=== PATIENT | male | born 1950 | race Caucasian/White ===

== ENCOUNTER 2020-01-03 12:04 | Outpatient (CLI) | payer MEDICARE, MEDICAID, SELFPAY ==
--- NOTE | 2020-01-03 12:16 | XRR_ITS ---
PROCEDURE INFORMATION: Exam: XR Abdomen, 3 or More Views Exam date and time: 01/03/2020 1:03 PM Age: 69 years old Clinical indication: Other: Upper chest / rib pain; Prior surgery; Surgery date: 6+ months; Surgery type: Bypass; Patient HX: C/O upper chest/ rib pain bilateral; Additional info: Abdominal pain TECHNIQUE: Imaging protocol: XR of the abdomen. Views: 3 or more views. COMPARISON: No relevant prior studies available. FINDINGS: Gastrointestinal tract: Normal. No bowel dilation. Intraperitoneal space: Normal. No free air. Bones/joints: There has been a sternotomy.There is no evidence for acute fracture or malalignment. Degenerative change is identified in the spine. The lungs are clear. No pleural effusion or pneumothorax. XR/XR acute abdomen series [id number] IMPRESSION: No acute findings.
== END 2020-01-03 12:05 | disposition home or self-care (01) ==
LOC: RAD 12:12
PROVIDERS: PCP Electrodiagnostic Medicine; Visit Provider Electrodiagnostic Medicine
DX: R10.9 Unspecified abdominal pain (principal)
CPT/HCPCS: 74022

== ENCOUNTER 2020-03-31 08:47 | Outpatient (CLI) | payer MEDICARE, MEDICAID, SELFPAY ==
--- NOTE | 2020-03-31 08:57 | XR_ITS ---
WS: [id number] Exam: XR shoulder LT min 2V* [id number] Date/Time of Exam: 03/31/2020 9:06 AM Reason For Exam: BILATERAL SHOULDER PAIN No fracture or dislocation. Minimal degenerative change of the glenoid. Subacromial bone spurring. No rmal soft tissues. XR/XR shoulder LT min 2V* [id number] IMPRESSION: 1. Mild degenerative changes. No fracture or dislocation.
--- NOTE | 2020-03-31 08:57 | XR_ITS ---
WS: [id number] Exam: XR chest 2V* [id number] Date/Time of Exam: 03/31/2020 9:06 AM Reason For Exam: DYSPNEA ON EXERTION Comparison 03/29/2018. The lungs are clear and fully expanded. Normal cardiomediastinal structures and bony elements. Status post CABG surgery. No pleural effusion. XR/XR chest 2V* [id number] IMPRESSION: 1. No acute cardiopulmonary finding. No change.
--- NOTE | 2020-03-31 08:57 | XR_ITS ---
WS: [id number] Exam: XR hip RT 2-3V wo/w pel* [id number] Date/Time of Exam: 03/31/2020 9:06 AM Reason For Exam: R HIP PAIN No fracture or dislocation. Moderately advanced degenerative change with joint space narrowing. Subco rtical cyst formation in the femoral head. Prominent osteophyte along the lateral margin of the aceta bular rim. Surgical clips in the upper medial thigh. XR/XR hip RT 2-3V wo/w pel* [id number] IMPRESSION: 1. Moderately advanced DJD. No fracture or dislocation.
--- NOTE | 2020-03-31 08:57 | XR_ITS ---
WS: [id number] Exam: XR shoulder RT min 2V* [id number] Date/Time of Exam: 03/31/2020 9:06 AM Reason For Exam: BILATERAL SHOULDER PAIN No fracture or dislocation. Moderate degenerative changes at the AC joint and glenohumeral joint. Nor mal soft tissues. XR/XR shoulder RT min 2V* [id number] IMPRESSION: 1. No fracture or dislocation. 2. Degenerative changes.
--- NOTE | 2020-03-31 08:57 | XR_ITS ---
WS: [id number] Exam: XR lumbar spine 2-3V* [id number] Date/Time of Exam: 03/31/2020 9:06 AM Reason For Exam: LOWER BACK PAIN Findings: No fracture or dislocation noted. There is spondylosis. Facet DJD at all levels. Degenerative disc ch anges at all levels. There is DJD of the bilateral SI joints. There may be partial fusion of the SI j oints. XR/XR lumbar spine 2-3V* [id number] IMPRESSION: 1. Moderately advanced degenerative changes. No fracture or malalignment.
== END 2020-03-31 08:48 | disposition home or self-care (01) ==
LOC: RAD 08:55
PROVIDERS: PCP Electrodiagnostic Medicine; Visit Provider Electrodiagnostic Medicine
DX: R06.00 Dyspnea, unspecified (principal); M54.5 Low back pain; M25.551 Pain in right hip; M25.512 Pain in left shoulder; M25.511 Pain in right shoulder; M16.11 Unilateral primary osteoarthritis, right hip
CPT/HCPCS: 71046; 72100; 73030; 73502

== ENCOUNTER 2020-05-14 13:36 | Outpatient (CLI) | payer MEDICARE, MEDICAID, SELFPAY ==
--- NOTE | 2020-05-14 13:48 | XRR_ITS ---
PROCEDURE INFORMATION: Exam: XR Chest, 2 Views Exam date and time: 05/14/2020 2:09 PM Age: 69 years old Clinical indication: Prior surgery; Surgery type: Bypass; Patient HX: HX of chf, swelling in feet, shortness of breath, weakness TECHNIQUE: Imaging protocol: XR of the chest Views: 2 views. COMPARISON: CR XR chest 2V* [id number] 03/31/2020 9:17 AM FINDINGS: Lungs: Unremarkable. No consolidation. Pleural space: Unremarkable. No pleural effusion. No pneumothorax. Heart/Mediastinum: Unremarkable. No cardiomegaly. Bones/joints: Metallic sternotomy wires are in place. Similar findings seen comparing to prior examination. XR/XR chest 2V* [id number] IMPRESSION: No acute findings. Status post sternotomy
== END 2020-05-14 13:37 | disposition home or self-care (01) ==
LOC: RAD 13:43
PROVIDERS: PCP Electrodiagnostic Medicine; Visit Provider Electrodiagnostic Medicine
DX: R06.09 Other forms of dyspnea (principal); I50.9 Heart failure, unspecified
CPT/HCPCS: 71046

== ENCOUNTER 2020-06-03 13:21 | Outpatient (CLI) | payer MEDICARE, MEDICAID, SELFPAY ==
--- NOTE | 2020-06-03 13:31 | USCV_ITS ---
Tiago Branch Age: 69 Gender: M : 1950 Exam Date: 06/03/2020 13:58 Ordering Phys: Dom Fuentes DO Technologist: Mariah Westfall [place]am Location: [facility] [place] [facility] [place] Indication: SOB CHF BP: 140 / 70 HR: 98 Rhythm: Sinus Technical Quality: Very technically difficult study MEASUREMENTS (Male / Female) Normal Values 2D ECHO LV Diastolic Diameter PLAX 3.7 cm 4.2 - 5.9 / 3.9 - 5.3 cm LV Systolic Diameter PLAX 1.6 cm LV Chamber Size 3.6 cm IVS Diastolic Thickness 1.4 cm 0.6 - 1.0 / 0.6 - 0.9 cm IVS Systolic Thickness 1.4 cm LVPW Diastolic Thickness 1.3 cm 0.6 - 1.0 / 0.6 - 0.9 cm LVPW Systolic Thickness 1.8 cm RV Chamber Size 3.2 cm LVOT Diameter 2.0 cm LV Ejection Fraction 2D Teich 87.2 % LA Diameter 3.1 cm LA Width 3.2 cm LA Height 4.9 cm RA Width 3.9 cm RA Height 4.3 cm Aorta at Sinotubular Diameter 3.4 cm M-MODE LV Diastolic Diameter MM 5.2 cm 4.2 - 5.9 / 3.9 - 5.3 cm LV Systolic Diameter MM 2.9 cm LV Ejection Fraction MM Teich 75.0 % IVS Diastolic Thickness MM 1.1 cm 0.6 - 1.0 / 0.6 - 0.9 cm IVS Systolic Thickness MM 1.3 cm LVPW Diastolic Thickness MM 1.1 cm 0.6 - 1.0 / 0.6 - 0.9 cm LVPW Systolic Thickness MM 1.7 cm RV Diastolic Diameter MM 1.5 cm Aortic Annulus Diameter 3.5 cm LA Ao Ratio MM 1.3 MV E Point Septal Separation 0.7 cm DOPPLER AV Peak Velocity 136.0 cm/s LVOT Peak Velocity 87.0 cm/s AV Area Cont Eq vti 2.2 cm squared AV Area Cont Eq pk 2.1 cm squared MV Area PHT 5.8 cm squared Mitral E to A Ratio 0.8 MV E' Velocity 32.0 cm/s Mitral E to MV E' Ratio 7.0 Mitral E to LV E' Lateral Ratio 8.3 Mitral E to LV E' Septal Ratio 6.1 TR Peak Velocity 178.1 cm/s TR Peak Gradient 12.7 mmHg TR Mean Velocity 130.3 cm/s TR Mean Gradient 7.5 mmHg TR Velocity Time Integral 37.5 cm TV Peak E Velocity 70.0 cm/s PV Peak Velocity 72.0 cm/s RV Acceleration Time 0.1 s RV Ejection Time 0.2 s RV AcT/ET 0.4 FINDINGS Left Ventricle Normal left ventricular cavity size. Low normal left ventricular systolic function. Left ventricular ejection fraction is estimated at 50-55 %. Although no diagnostic regional wall motion abnormality could be identified, this possibility cannot be excluded based on this study. Grade I diastolic dysfunction (abnormal relaxation filling pattern), normal to mildly elevated filling pressures. Right Ventricle Right ventricle not well visualized. Probably normal right ventricular systolic function. Right Atrium Right atrium not well visualized. Left Atrium Mildly increased left atrial size. Mitral Valve Mildly thickened mitral valve. No mitral valve stenosis. No significant mitral valve regurgitation. Aortic Valve Aortic valve not well visualized. No aortic valve stenosis. No aortic valve regurgitation. Tricuspid Valve Structurally normal tricuspid valve. Trace to mild tricuspid valve regurgitation. Pulmonic Valve Pulmonic valve not well visualized. Pericardium No pericardial effusion. Aorta Normal size aortic root and proximal ascending aorta. CONCLUSIONS 1. This is a technically difficult study. 2. Normal left ventricular cavity size. Low normal left ventricular systolic function. Left ventricular ejection fraction is estimated at 50-55 %. Although no diagnostic regional wall motion abnormality could be identified, this possibility cannot be excluded based on this study. Grade I diastolic dysfunction (abnormal relaxation filling pattern), normal to mildly elevated filling pressures. 3. Probably normal right ventricular systolic function. 4. Mildly increased left atrial size. 5. No significant valvular abnormality. 6. When compared to previous echocardiogram dated 04/08/2015, there may not have been any significant change. Shea Nelson MD (Electronically Signed) Final Date: 07 June 2020 15:11 S
== END 2020-06-03 13:22 | disposition home or self-care (01) ==
LOC: US 13:23
PROVIDERS: PCP Electrodiagnostic Medicine; Visit Provider Electrodiagnostic Medicine
DX: R06.09 Other forms of dyspnea (principal); I50.9 Heart failure, unspecified; I51.7 Cardiomegaly
CPT/HCPCS: 93306

== ENCOUNTER → 2021-10-23 10:49 | Outpatient (BNVA) | payer MEDICARE, MEDICAID, SELFPAY | PROVIDERS: PCP Electrodiagnostic Medicine; Visit Provider Internal Medicine | DX: I25.10 Atherosclerotic heart disease of native coronary artery without angina pectoris (principal); I10 Essential (primary) hypertension; R06.02 Shortness of breath; Z95.1 Presence of aortocoronary bypass graft; E78.5 Hyperlipidemia, unspecified; Z98.61 Coronary angioplasty status; E11.9 Type 2 diabetes mellitus without complications; Z79.84 Long term (current) use of oral hypoglycemic drugs | CPT/HCPCS: 99214 ==

== ENCOUNTER → 2022-05-21 09:06 | Outpatient (BNVA) | payer MEDICARE, MEDICAID, SELFPAY | PROVIDERS: PCP Electrodiagnostic Medicine; Visit Provider Nurse Practitioner Family | DX: I25.10 Atherosclerotic heart disease of native coronary artery without angina pectoris (principal); I10 Essential (primary) hypertension; I42.9 Cardiomyopathy, unspecified; T14.8XXD Other injury of unspecified body region, subsequent encounter; Z95.1 Presence of aortocoronary bypass graft | CPT/HCPCS: 99214 ==

== ENCOUNTER 2022-05-27 08:19 | Outpatient (CLI) | payer MEDICARE, MEDICAID, SELFPAY ==
--- NOTE | 2022-05-27 08:45 | USCV_ITS ---
Tiago Branch Age: 71 Gender: M : 1950 Exam Date: 05/27/2022 08:43 Ordering Phys: Margo Cruz Technologist: VICTORIA Exam Location: 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
== END 2022-05-27 08:20 | disposition home or self-care (01) ==
LOC: RAD 08:22
PROVIDERS: PCP Electrodiagnostic Medicine; Visit Provider Nurse Practitioner Family
DX: I25.10 Atherosclerotic heart disease of native coronary artery without angina pectoris (principal); L97.819 Non-pressure chronic ulcer of other part of right lower leg with unspecified severity
CPT/HCPCS: 93926

== ENCOUNTER → 2022-10-13 08:40 | Outpatient (BNVA) | payer MEDICARE, MEDICAID, SELFPAY | PROVIDERS: PCP Electrodiagnostic Medicine; Visit Provider Specialist | DX: M17.12 Unilateral primary osteoarthritis, left knee (principal) | CPT/HCPCS: 73560; 73565; 99204 ==

== ENCOUNTER 2022-11-04 10:57 | Outpatient (CLI) | payer MEDICARE, MEDICAID, SELFPAY ==
[2022-11-04 11:47] LABS: Basophils # 0.1 10^3/uL (0.0-0.1); Basophils % 0.9 %; Eosinophils % 0.1 %; Hematocrit 36.9 % (42.0-52.0); Hemoglobin 12.5 g/dL (11.7-16.6); Lymphocytes % 28.9 %; Mean Corpuscular HGB Conc 33.9 g/dL (30.0-36.0); Mean Corpuscular Hemoglobin 30.3 pg (28.0-34.0); Mean Corpuscular Volume 89.6 fl (80-94); Mean Platelet Volume 9.4 fL (7.4-10.4); Monocytes # 0.5 10^3/uL (0.2-0.9); Neutrophils # 4.43 10^3/uL (1.8-7.7); Nucleated Red Blood Cells % 0 %; Platelet Count 189 10^3/cmm (130-400); Red Blood Count 4.12 10^6/uL (4.1-5.3)
[2022-11-04 12:05] LABS: Alanine Aminotransferase 21 U/L (0-41); Albumin Level 4.2 g/dL (3.5-5.2); Alkaline Phosphatase 77 U/L (40-130); Anion Gap 14.8 (5-19); Aspartate Amino Transferase 20 U/L (0-40); Blood Urea Nitrogen 25 mg/dL (8-23); Calcium 9.2 mg/dL (8.5-10.5); Carbon Dioxide 24 mmol/L (22-29); Chloride 104 mmol/L (98-107); Globulin 3.3 g/dL (1.3-4.6); Glucose 135 mg/dL (65-115); Osmolality Calculated 290 mOsm/kg (285-295); Potassium 5.8 mmol/L (3.5-5.1); Sodium 137 mmol/L (136-145); Total Bilirubin 0.4 mg/dL (0.15-1.2); Total Protein 7.5 g/dL (6.6-8.7)
[2022-11-04 12:27] LABS: Hepatitis C Virus Antibody Reactive (Nonreactive)
[2022-11-04 12:38] LABS: Hepatitis B Core AB, Total Non-Reactive (Nonreactive); Hepatitis B Surface AB 3.5 (11.5-1000)
[2022-11-06 13:25] LABS: Quantiferon Mitogen >10.00 IU/mL; Quantiferon Nil 0.03 IU/mL; Quantiferon Plus TB1 0.02 IU/mL; Quantiferon TB Gold NEGATIVE (NEGATIVE)
[2022-11-07 09:53] LABS: HEP C RNA Viral Load Quant <1.18 NOT DETECTED Log IU/mL (NOT DETECTED); HEP C RNA Viral Load Quant <15 NOT DETECTED IU/mL (NOT DETECTED)
== END 2022-11-04 10:58 | disposition home or self-care (01) ==
PROVIDERS: PCP Electrodiagnostic Medicine; Visit Provider Nurse Practitioner Family
DX: L40.59 Other psoriatic arthropathy (principal); L40.0 Psoriasis vulgaris; I87.2 Venous insufficiency (chronic) (peripheral); L81.4 Other melanin hyperpigmentation; D22.5 Melanocytic nevi of trunk; Z71.89 Other specified counseling; L85.3 Xerosis cutis; S80.811A Abrasion, right lower leg, initial encounter; X58.XXXA Exposure to other specified factors, initial encounter; L82.1 Other seborrheic keratosis; D36.14 Benign neoplasm of peripheral nerves and autonomic nervous system of thorax; Z79.899 Other long term (current) drug therapy
CPT/HCPCS: 80048; 80076; 85025; 86480; 86704; 86706; 86803; 87522; 99204

== ENCOUNTER → 2023-03-24 11:07 | Outpatient (BNVA) | payer MEDICARE, MEDICAID, SELFPAY | PROVIDERS: PCP Electrodiagnostic Medicine; Visit Provider Specialist | DX: M17.12 Unilateral primary osteoarthritis, left knee (principal) | CPT/HCPCS: 99214 ==

== ENCOUNTER 2023-04-13 07:31 | Outpatient (CLI) | payer MEDICARE, MEDICAID, SELFPAY ==
--- NOTE | 2023-04-13 07:30 | CT_ITS ---
WS: [id number] CT LEFT knee, noncontrast HISTORY: LEFT TOTAL KNEE ARTHROPLASTY TECHNIQUE: Protocol for [facility] total knee replacement has been obtained. This includes axial imaging th rough the LEFT hip, LEFT knee and LEFT ankle. DLP: 983.44 mGy.cm COMPARISON: Radiograph 10/13/2022 Pelvis: Narrowing and partial fusion of the SI joints. Mild osteopenia. Mild narrowing of the hip joesph nts with mild osteophytic ridging around the acetabulum. LEFT knee: Severe narrowing of the joint spaces. Bone upon bone in the medial compartment. Osteophyti c ridging around the knee. No fractures or dislocation. No significant joint effusion. LEFT ankle: No fracture. There is a calcific density lateral to the calcaneus. IMPRESSION: CT imaging provided for [facility] robotic total knee replacement.
== END 2023-04-13 07:32 | disposition home or self-care (01) ==
LOC: RAD 07:32
PROVIDERS: PCP Electrodiagnostic Medicine; Visit Provider Specialist
DX: M17.12 Unilateral primary osteoarthritis, left knee (principal)
CPT/HCPCS: 73700

== ENCOUNTER 2023-04-25 12:13 | Outpatient (CLI) | payer OTHER, MEDICAID, SELFPAY | END 2023-04-25 12:14 | disposition home or self-care (01) | PROVIDERS: PCP Electrodiagnostic Medicine; Visit Provider Family Medicine | DX: Z01.818 Encounter for other preprocedural examination (principal); E11.9 Type 2 diabetes mellitus without complications | CPT/HCPCS: 80053; 81000; 83036; 85025 ==

== ENCOUNTER 2023-04-26 13:59 | Observation (INO) | payer OTHER, MEDICAID, SELFPAY ==
[2023-04-26] VITALS (17 sets, daily range): BP systolic 112–170; BP diastolic 50–96; PULSE 69–83; RESP 13–22; TEMP 36.1–36.7; O2SAT 91–99; BMI 39.4
[2023-04-26] MEDS: gabapentin 300 mg Capsule PO (10:15)
[2023-04-26] MEDS: sodium chloride 0.9% 1,000 ML 30 ML IV (10:16)
[2023-04-26] MEDS: CELEcoxib 200 mg Capsule 400 MG PO (10:16)
[2023-04-26] MEDS: acetaminophen 1,000 MG/100 ML PIGGYBACK 400 MG IV ×2 (10:17→17:36)
--- NOTE | 2023-04-26 10:39 | ANES.PREANE2 ---
Pre-Anesthetic Assessment Height/Weight: Height 1.78 m Weight 124.738 kg Temp Pulse Resp BP Pulse Ox O2 Del Method 97.5 F L 80 16 137/72 98 Room Air 04/26/23 10:00 04/26/23 10:00 04/26/23 10:00 04/26/23 10:00 04/26/23 10:00 04/26/23 10:01 Preop Diagnosis: Primary osteoarthritis left knee Operation Date: 04/26/23 11:15 Proposed Procedures p Left Nestor Robot Total Knee Arthroplasty(Left) - Ludy Key MD Familial anesthetic complications: none Was Beta Yannick taken within 24 hours: Yes Was Clonidine taken within 24 hours: N/A Last intake: Intake Last Liquid Date 04/25/23 Last Liquid Time 23:00 Last Solid Date 04/25/23 Last Solid Time 21:30 Social No alcohol and No tobacco Exam alert, oriented x 3, clear to auscultation bilaterally and regular rate & rhythm Airway Submandibular: within normal limits Cervical ROM: within normal limits Mallampati: Class II Dentition: false CV/HEM Coronary Artery Disease (CABG), Congestive Heart Failure, Hypertension and Peripheral Vascular Disease CONCLUSIONS ?1. This is a technically difficult study. ?2. Normal left ventricular cavity size. Low normal left ?ventricular systolic function.? Left ventricular ejection ?fraction is estimated at 50-55 %. Although no diagnostic ?regional wall motion abnormality could be identified, this ?possibility cannot be excluded based on this study. Grade I ?diastolic dysfunction (abnormal relaxation filling pattern), ?normal to mildly elevated filling pressures. ?3. Probably normal right ventricular systolic function. ?4. Mildly increased left atrial size. ?5. No significant valvular abnormality. ?6. When compared to previous echocardiogram dated 04/08/2015, ?there may not have been any significant change. ?Shea Nelson MD ?(Electronically Signed) ?Final Date:? ? ? 07 June 2020 Chronic Renal Insufficiency GI Gastroesophageal Reflux Disease Metabolic Diabetes Mellitus, Hyperlipidemia and Morbid Obesity Musc/skel Lower Back Pain and Osteoarthritis/DJD Anesthetic Plan ASA status: 3 Anesthesia: Regional (specify below) (SAB with adductor blk) Medications/Allergies Home Medications Medication Instructions Recorded Confirmed Last Taken Type albuterol sulfate 90 mcg/actuation 2 puff inhalation Q6H PRN Allergy 10/17/19 04/26/23 04/25/23 History aerosol inhaler (ProAir HFA) Symptoms amlodipine 10 mg tablet 10 mg PO DAILY 10/17/19 04/25/23 04/26/23 08:00 History cetirizine 10 mg tablet 10 mg PO DAILY PRN Allergy Symptoms 10/17/19 04/25/23 04/25/23 History hydrocodone 10 mg-acetaminophen 1 tab PO Q6H PRN Pain 10/17/19 04/25/23 04/26/23 08:00 History 325 mg tablet ibuprofen 800 mg tablet (IBU) 800 mg PO TID 10/17/19 04/25/23 04/25/23 History lisinopril 40 mg tablet 40 mg PO DAILY 10/17/19 04/25/23 04/25/23 History lorazepam 1 mg tablet 1 mg PO DAILY PRN Anxiety 10/17/19 04/25/23 04/26/23 08:00 History metformin 500 mg tablet 500 mg PO BID 10/17/19 04/25/23 04/25/23 History (Glucophage) mometasone 50 mcg/actuation nasal 2 spray intranasal DAILY 10/17/19 04/26/23 04/25/23 History spray (Nasonex) nitroglycerin 0.4 mg sublingual 0.4 mg sublingual Q5M PRN Chest 10/17/19 04/25/23 Unknown History tablet (Nitrostat) Pain metoprolol tartrate 50 mg tablet 50 mg PO BID #90 tabs 07/17/21 04/25/23 04/26/23 08:00 Rx triamterene 37.5 1 tab PO DAILY #90 tabs 05/05/22 04/25/23 04/26/23 08:00 Rx mg-hydrochlorothiazide 25 mg tablet magnesium oxide 400 mg PO QDAY #90 tabs 08/02/22 04/25/23 04/25/23 Rx amitriptyline 25 mg tablet 25 mg PO .qhs 04/25/23 04/25/23 04/25/23 History atorvastatin 40 mg tablet 40 mg PO DAILY 04/25/23 04/25/23 04/26/23 08:00 History pantoprazole 40 mg tablet,delayed 40 mg PO DAILY 04/25/23 04/25/23 04/26/23 08:00 History release Allergies Allergy/AdvReac Type Severity Reaction Status Date / Time No Known Allergies Allergy Unknown Verified 04/26/23 09:52 Current Medications Generic Name Dose Route Start Last Admin Trade Name Chriss PRN Reason Stop Dose Admin Sodium Chloride 1,000 mls @ 30 mls/hr 04/26/23 10:00 04/26/23 10:16 Sodium Chloride 0.9% IV 04/27/23 09:59 30 mls/hr .Q24H JUSTINA Administration PFSH Anesthesia Medical History ASHD (arteriosclerotic heart disease) Cardiomyopathy Diabetes Dyslipidemia HTN (hypertension) Obesity Surgical History S/P CABG (coronary artery bypass graft) S/P PTCA (percutaneous transluminal coronary angioplasty) Family History Brother CAD (coronary artery disease) Mother Cancer Other Diabetes Stroke Social History Smoking and tobacco/nicotine status: never used tobacco/nicotine Alcohol intake: former Substance/Drug Use: never Household members: spouse Marital status: service: No Current occupational status: retired Data Anesthesia Cardiac Studies: Echocardiogram Ultrasound 06/03/20
--- NOTE | 2023-04-26 11:25 | W.PM.OPSUD ---
Surgery/Procedure H&P Update DATE OF PROCEDURE: April 26, 2023 DATE H&P PERFORMED: 04/25/23 H&P UPDATE INFORMATION: I have reviewed H&P completed within last 30 days, I have examined patient prior to procedure, No changes to prior documentation and H&P is in [facility] [place] on date indicated PREOP DIAGNOSIS: Primary osteoarthritis left knee PLANNED PROCEDURE: Operation Date: 04/26/23 11:15 Proposed Procedures p Left Nestor Robot Total Knee Arthroplasty(Left) - Ludy Key MD Related Problem List Diagnoses (1) Primary osteoarthritis of left knee:
[2023-04-26] MEDS: ceFAZolin 2,000 MG in sodium chloride 0.9% (plus) 50 ML 100 MG IV ×2 (12:02→17:35)
[2023-04-26] MEDS: tranexamic acid 1,000 mg/10mL SDV 1000 MG IV (13:01)
--- NOTE | 2023-04-26 13:26 | ANES.PROC ---
Anesthesia Procedures Procedure/Date: 04/26/23 Nerve Block ^: Nerve Block 1: Main Anesthesia: spinal anesthesia block Time Out Performed: Yes Consent: requested by attending/covering physician, from patient, risks and benefits reviewed and patient agrees to proceed Nerve block location: adductor canal (left) Anesthesia monitors applied: pulse oximetry, EKG, BP cuff and oxygen Nerve block position: supine Anesthetic Used: ropivicaine 0.5% Amount of anesthesia used (mL): 20 Ultrasound used to: recognize landmarks Nerve Stimulator Used?: No Interscalene/Femoral BLK: 4 stimuplex 21 g needle used for position and inplane approach Injection: neg aspiration of heme Patient Tolerated Procedure: well Complications: none
[2023-04-26 14:30] LABS: Glucose Point of Care 107 mg/dL (70-110)
[2023-04-26] MEDS: vancomycin 1,000 MG SDV 1000 MG XX (15:45)
[2023-04-26] MEDS: BUPivacaine 0.5% INJ 30 mL 20 ML INJECTION (15:46)
[2023-04-26] MEDS: BUPivacaine liposome 13.3 mg/mL SDV 10 mL 266 MG INFILTRATI (15:46)
[2023-04-26] MEDS: ceFAZolin 1,000 mg SDV 2000 MG IRRIGATION (15:54)
--- NOTE | 2023-04-26 16:04 | PM.OP ---
Operative Report Date of procedure: April 26, 2023 Pre-op diagnosis: Severe degenerative arthritis left knee with varus deformity and flexion contracture Post-op diagnosis: Severe degenerative arthritis left knee with varus deformity and flexion contracture Post-op findings: Severe degenerative osteoarthritis of the left knee with complete obliteration of joint space and with varus deformity and flexion contracture Procedure done: Left total knee arthroplasty with Nestor guidance Implants: The Carter total knee system with a size 5 triathlon beaded cruciate retaining femur left, a triathlon titanium tibial component size 5 beaded, a triathlon X3 tibial bearing CS insert size 5 X 11 mm and a beaded triathlon titanium asymmetric patella size 32 x 10 mm Specimens removed/disposition: Bone, disposed Pathology: None Surgeon: Ludy Key MD Cylinder Press Operator Apprentice: Paige Bird NP, who skills were necessary for operative exposure, positioning, implant placement, and completion of the surgical procedure Anesthesia: Spinal (With MAC and supplemental adductor block, ASA 3) Estimated blood loss (mL): 200 Tourniquet time (min): 0 (Not utilized) IV fluids (mL): 1,200 Urine output (mL): 250 Complications: None Findings: Severe degenerative osteoarthritis with large osteophytes, flexion contracture, and varus deformity. Condition: stable Disposition: PACU (Then discharged to floor for postoperative rehabilitation and pain management) Brief History: This is an established 72 year old male patient here today for left total knee arthroplasty with Nestor guidance. He stated he has no pain while sitting. He reports pain with increased activity such as standing or walking. He explains he is unable to walk long distances due to his pain. He explains his pain wakes him up at night. He states he has been cleared by by his dentist and has had all his teeth pulled. He does have significant interference in his activities of daily living. Consents were signed and questions were answered at the time of his visit. I saw this patient that I did earlier she got a text from somebody I am not sure who said that they were going to self-pay so the plan would be that she was started tomorrow I asked when to check how she doing okay already sounds good thanks Procedure: The patient was brought to the operating theater, and after undergoing spinal anesthesia with supplemental MAC, as well as an adductor canal block, ASA 3, the left lower extremity was prepped with Dura-Prep and draped in usual fashion following placement of a tourniquet high on the leg. The leg was then draped free.? Tourniquet was not elevated during the case.? A surgical pause was performed, and at the time of the surgical pause, we confirmed the site and side of surgery. Additionally, we confirmed the appropriate and timely administration of preoperative antibiotics, Ancef 2 g and Transexemic acid 1 g.? The availability of equipment was confirmed, and the patient's identity was verbalized as well.? An additional transexemic acid 1 g was given at the end of the surgical procedure as well. Following the surgical pause, an incision was made centering over the patella continuing proximally and distally as necessary to allow access to the knee joint. Dissection continued through skin and soft tissues using a scalpel. Hemostasis was obtained using electrocautery. The skin incision was followed by a median parapatellar arthrotomy. The leg was extended and the patella was able to be displaced laterally.? Appropriate arrays and markers were placed in appropriate position for use of the Nestor.? Preoperative planning had been accomplished and was discussed in detail with the [facility] open claims representative.? Intraoperative mapping of the femur and tibia was accomplished after the arrays were placed.? Internal markers were also placed.? Once we had accomplished the Nestor mapping, we began the appropriate resections for placement of the prosthesis.? The plan was for a cruciate retaining right total knee arthroplasty. Once appropriate mapping had been accomplished retraction was established using manual retraction by surgical technicians and also the Nestor leg positioner and retractors.? The knee was evaluated.? There was significant osteoarthritic change as well as slight flexion contracture.? Appropriate bone resection was accomplished using the Nestor.? The femur was sized to a size 5.? Following femoral cuts, attention was directed to the tibia.? Osteophytes were removed prior to this portion of the procedure.? We had performed a minimal medial release at the beginning of the procedure to allow for placement of the array.? Proximal tibia was evaluated, and it was felt that appropriate size for the tibia was a size 5.? Tray was noted to fit nicely with good coverage.? Rim fit was accomplished with the size 5. A trial reduction was accomplished after osteophytes have been removed as well as the medial and lateral menisci.? We had removed the anterior cruciate ligament at the beginning of the case and preserved the posterior cruciate ligament.? Trial reduction was accomplished with a size 5 femoral cruciate retaining component and a size 5 CS tibial bearing insert which was 9 mm in thickness initially.? Sequential increase in size of the insert was accomplished.? Final trial insert was a size 10 mm with plans for actual implant to be a size 11 mm.? Alignment was felt to be appropriate as well.? Trial components were removed after the femur had been drilled.? Prior to removal of the tibial tray which had been pinned in position with appropriate rotation as determined by the Nestor plan, we broached the tibia.? Subsequently, the 4 drill holes were made for the prosthetic component.? All trial components were removed, and the wound was irrigated.? Plans were made for insertion of the prosthetic components.? Prior to this, the patella was manually prepared.? After resection of the articular surface with the jogging system, it was measured and measured a 32 mm patella.? We resected approximately 11 mm of patella.? Patellar height was restored with the patellar component. Once again, the wound was irrigated.? The Tritanium tibia was impacted into position.? The beaded femur was then impacted into position in a cementless fashion. The CS tibial insert was placed prior to placement of the femoral component. The patella was pressed into position with a patellar clamp.? Exparel was injected about the components deep and superficially.? The knee was then copiously irrigated with betadine and saline and suctioned dry. Attention was then directed to closure. Closure was accomplished with 0 Vicryl in the fascial tissues.? The suture line of 0 Vicryl was supplemented with strata fix, #1, with a running stitch from proximal to distal and a second running stitch from distal to proximal.? This was followed by Surgiflo and vancomycin powder.? Following this, a 2-0 Monocryl was used in the subcutaneous tissues, and the skin was closed with skin srini.? Care was taken to assure an excellent subcutaneous as well as skin closure.? A sterile dressing was then placed consisting of Dermabond Prineo, OpSite, sterile soft roll, and an Blade wrap including over the foot. The patient was returned the Recovery Room in a satisfactory condition. X-rays were obtained and reviewed there.? The patient will be discharged to the floor for postoperative rehabilitation and pain management. Related Problem List Diagnoses (1) Primary osteoarthritis of left knee: (2) Varus deformity, not elsewhere classified, left knee:
--- NOTE | 2023-04-26 16:10 | XRR_ITS ---
PROCEDURE INFORMATION: Exam: XR Left Knee Exam date and time: 04/26/2023 5:17 PM Age: 72 years old Clinical indication: Device placement; Joint replacement hardware; Prior surgery; Surgery date: Post-operative (0-2 days); Surgery type: Lt knee; Additional info: Post op XR in pacu S/P left tka. TECHNIQUE: Imaging protocol: Radiologic exam of the left knee. Views: 1 or 2 views. COMPARISON: CR XR knees AP WB w LT lmt ORTH 10/13/2022 8:43 AM FINDINGS: Bones/joints: The patient has had a left total knee arthroplasty with no adverse findings. Soft tissues: Postoperative soft tissue changes are seen including multiple anterior skin srini. Scattered clips are seen in the medial thigh and medial upper calf. XR/XR knee LT 1-2V [id number] IMPRESSION: Normal appearing postoperative left total knee arthroplasty.
[2023-04-26] MEDS: fentaNYL 50 mcg/mL INJ 2mL IVP (16:27)
--- NOTE | 2023-04-26 16:31 | ANE.PACU2 ---
Inpatient post-anesthesia follow up: Airway intact: Yes Vital signs: Temperature 97.6 F Pulse Rate 69 Respiratory Rate 17 Blood Pressure 112/69 Pulse Oximetry 97 Oxygen Delivery Me thod Room Air Oxygen Flow Rate Fraction of Inspir ed Oxygen Hydration adequate: Yes Nausea and vomiting: No Pain level: 2 Mental status: Baseline
[2023-04-26] MEDS: oxyCODONE 5 mg IR Tab/Cap PO (17:23)
[2023-04-26] MEDS: metformin 500 mg Tablet PO (17:35)
[2023-04-26] MEDS: iron polysaccharide complex 150 mg Capsule PO (17:35)
[2023-04-26] MEDS: acetaminophen 500 mg Tablet 1000 MG PO (17:35)
[2023-04-26] MEDS: mupirocin oint 22 gm 1 APPLIC NASAL (17:36)
[2023-04-26] MEDS: CELEcoxib 200 mg Capsule PO (17:36)
[2023-04-26] MEDS: chlorhexidine gluconate 0.12% Btl 473 mL 30 ML MUCOUS MEM ×2 (17:36→20:49)
[2023-04-26] MEDS: metoprolol tartrate 50 mg Tablet PO (17:36)
[2023-04-26] MEDS: HYDROcodone-acetaminophen 10-325 mg Tablet 1 TAB PO (20:02)
[2023-04-26] MEDS: LORazepam 1 mg Tablet PO (20:49)
[2023-04-26] MEDS: amitriptyline 25 mg Tablet PO (20:49)
[2023-04-26] MEDS: tranexamic acid 1,000 MG/100 ML PREMIX 600 MG IV (20:49)
[2023-04-27] MEDS: HYDROcodone-acetaminophen 10-325 mg Tablet 1 TAB PO ×4 (00:04→15:26)
[2023-04-27 00:12] VITALS: BP 129/70; PULSE 85; RESP 18; TEMP 36.4; O2SAT 94
[2023-04-27] MEDS: ceFAZolin 2,000 MG in sodium chloride 0.9% (plus) 50 ML 100 MG IV ×2 (01:00→09:22)
[2023-04-27 04:21] VITALS: BP 140/77; PULSE 90; RESP 18; TEMP 37; O2SAT 94
[2023-04-27 05:07] LABS: Basophils % 0.3 %; Hematocrit 32.2 % (37-53); Lymphocytes # 1.6 10^3/uL (0.8-4.8); Lymphocytes % 20.1 %; Mean Corpuscular HGB Conc 33.5 g/dL (30-55); Mean Corpuscular Hemoglobin 30.6 pg (27-33); Mean Corpuscular Volume 91.2 fl (82-101); Monocytes # 0.6 10^3/uL (0.2-0.9); Monocytes % 7.8 %; Neutrophils # 5.53 10^3/uL (1.8-7.7); Neutrophils % 71.7 %; Nucleated Red Blood Cells % 0 %; Platelet Count 154 10^3/cmm (157-399); Red Blood Count 3.53 10^6/uL (3.85-5.65); Red Cell Distribution Width 11.9 % (12.1-15.1); White Blood Count 7.71 10^3/uL (3.29-11.43)
[2023-04-27 05:32] LABS: Anion Gap 14.7 (5-19); Blood Urea Nitrogen 22 mg/dL (8-23); Calcium 9.2 mg/dL (8.5-10.5); Carbon Dioxide 22 mmol/L (22-29); Chloride 101 mmol/L (98-107); Creatinine Clr Calc Pharmacy 71.5727; Glucose 117 mg/dL (65-115); Osmolality Calculated 280 mOsm/kg (285-295); Potassium 4.7 mmol/L (3.5-5.1); Sodium 133 mmol/L (136-145)
[2023-04-27] MEDS: ondansetron 2 mg/ML SDV 2 mL 4 MG IVP (07:09)
[2023-04-27 08:00] VITALS: BP 127/56; PULSE 112; PULSE 90; RESP 16; RESP 18; TEMP 36.9; O2SAT 94
[2023-04-27] MEDS: CELEcoxib 200 mg Capsule PO (09:21)
[2023-04-27] MEDS: pantoprazole DR 40 mg Tablet PO (09:21)
[2023-04-27] MEDS: amlodipine 10 mg Tablet PO (09:21)
[2023-04-27] MEDS: aspirin 325 mg EC Tablet PO (09:21)
[2023-04-27] MEDS: metoprolol tartrate 50 mg Tablet PO (09:21)
[2023-04-27] MEDS: multivitamin therapeutic Tablet 1 TAB PO (09:21)
[2023-04-27] MEDS: atorvastatin 40 mg Tablet PO (09:21)
[2023-04-27] MEDS: magnesium oxide 400 mg tablet PO (09:21)
[2023-04-27] MEDS: iron polysaccharide complex 150 mg Capsule PO (09:21)
[2023-04-27] MEDS: metformin 500 mg Tablet PO (09:21)
[2023-04-27] MEDS: cholecalciferol (vitamin D3) 1,000 unit Tablet 1000 UNIT PO (09:21)
[2023-04-27] MEDS: lisinopril 20 mg Tablet 40 MG PO (09:22)
[2023-04-27] MEDS: chlorhexidine gluconate 0.12% Btl 473 mL 30 ML MUCOUS MEM ×2 (09:23→13:56)
[2023-04-27] MEDS: mupirocin oint 22 gm 1 APPLIC NASAL (09:23)
--- NOTE | 2023-04-27 11:11 | PC.CHAP ---
Pastoral Care Encounter/Spiritual Assessment Type of Contact [] Declined tobacco wetter visit [] Patient/Family/Request visit [] Outpatient visit [] Follow-up visit [] Physician referral [] Code/Alert [x] Routine visit [] Staff referral [] Actively dying [] Patient sleeping [] Family support [] [] Out of room [] Palliative care [] [] Receiving care in room [] Pre-surgical visit [] Trauma [] Long length of stay [] ICU visit [] Other: Relational/Emotional Strength [x] Patient feels connected with others/family/visitors/staff [] Distress [] Loneliness/isolation [] Abandonment Spirituality of Patient [] Person of Devi [] Attends Adventism of their Devi [] Believes in Prayer [] Reads Bible or Orthodoxy materials [] There are Spiritual 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 [x] Prayer [x] Active listening [] Non-anxious presence [] Spiritual/emotional support [] Crisis/trauma care [] Spiritual counseling [] Bereavement support [] Provided bereavement packet [] Provided Bible/devotional materials [] Provided toy/stuffed animal, coloring book to patient or family member [] Provided Communion [] Anointing/Bonita [] Salvation [] Completed spiritual assessment [] Other: Impact on Illness or Injury [] Angry [] Fearful [] Anxious [] Often cries [] Exhaustion [] Unable to work [] Unable to attend anabaptism [] Unable to walk/stand [] Unable to read [] Unable to drive [] Unable to eat/drink [] Unable to sleep [] Unable to be with family [] Patient intubated [] Other: Summary Time spent with patient 15 min
[2023-04-27 12:00] VITALS: BP 152/80; PULSE 100; RESP 18; TEMP 36.4; O2SAT 93
--- NOTE | 2023-04-27 15:25 | P.DS_ITS ---
Discharge Providers Date of Admission: 04/26/23 13:59 Date of Discharge: April 27, 2023 Attending Provider at Admission: Ludy Key MD Attending Provider at Discharge: Ludy Key MD Primary Care Provider: Dom Fuentes DO Diagnoses at Discharge Discharge Diagnosis (1) Status post total right knee replacement using cement: Status: Acute Permanent problem details: Diagnosis: Severe degenerative arthritis left knee with varus deformity and flexion contracture Procedure done: Left total knee arthroplasty with Nestor guidance Implants: The [employer] total knee system with a size 5 triathlon beaded cruciate retaining femur left, a triathlon titanium tibial component size 5 beaded, a triathlon X3 tibial bearing CS insert size 5 X 11 mm and a beaded triathlon titanium asymmetric patella size 32 x 10 mm (2) Primary osteoarthritis of left knee: Status: Acute (3) Varus deformity, not elsewhere classified, left knee: Status: Acute Reason for Visit Reason for Visit: 43681 M17.0 Brief History: This is an established 72 year old male patient here today for left total knee arthroplasty with Nestor guidance. He stated he has no pain while sitting. He reports pain with increased activity such as standing or walking. He explains he is unable to walk long distances due to his pain. He explains his pain wakes him up at night. He states he has been cleared by by his dentist and has had all his teeth pulled.? He does have significant interference in his activities of daily living.? Consents were signed and questions were answered at the time of his visit.? Hospital Course Hospital Course Patient was admitted under observation status following same-day surgery for left total knee arthroplasty with Nestor guidance. He had a significant varus deformity and flexion contracture prior to his surgical procedure. He was seen on the first postoperative day, and he was dressed and ready to be discharged to home. He had no complaints. Dressings were removed. His wound was benign. There was no evidence of DVT. He was neurologically intact. There was no drainage from his incision. Therefore, the patient was to be discharged home with home health. Physical Exam Const: COMMON NORMALS: no acute distress, average body habitus, patient oriented x3 and alert GENERAL APPEARANCE: cooperative and comfortable ORIENTATION/CONSCIOUSNESS: Yes awake HENMT: COMMON NORMALS: normocephalic and atraumatic HEAD & SCALP: normocephalic and atraumatic Eye: GENERAL EYE: appearance normal, both eyes and all related structures Chest: COMMONS NORMALS: normal inspection of the chest Resp: COMMON NORMALS: normal respiratory effort EFFORT & INSPECTION: Yes able to speak in complete sentences and Yes symmetric chest movement Extremity: RIGHT LOWER EXTREMITY: Yes knee joint (Dressing is dry and intact. Blade is removed) Right knee: Yes inspection (No evidence of DVT.), Yes palpation (Minimal tenderness.), Yes ROM (Able to straight leg raise.) and Yes neurovascular exam (Intact distally with no evidence of DVT) Neuro: COMMON NORMALS: patient oriented x3 SENSORIUM/ORIENTATION: Yes alert Psych: COMMON NORMALS: mental status grossly normal APPEARANCE: Yes grossly normal ATTITUDE: Yes calm and Yes engaged ATTENTION/CONCENTRATION: Yes attention grossly intact Skin: COMMON NORMALS: no rashes or lesions noted GENERAL SKIN EXAM: no rashes or lesions noted Urinary Catheter Management: Noriega: Cath Placed During This Visit: yes, but has since been removed by the nurse Reason for Continuing Indwelling Catheter: Perioperative Use in Selected Surgeries Urinary Catheter Date of Insertion: 04/26/23 Urinary Catheter Time of Insertion: 12:35 Date Urinary Catheter Removed: 04/27/23 Time Urinary Catheter Discontinued: 06:00 Discharge Data Studies Completed and Pending Completed Studies During Hospitalization Category Date Time Status XR knee LT 1-2V 56101 Stat Exams 04/26/23 16:10 Completed Pending at discharge Category Date Time Status Complete Blood Count w/Auto AM LABS Lab 04/28/23 04:00 Ordered Complete Blood Count w/Auto AM LABS Lab 04/29/23 04:00 Ordered Radiology Impressions Knee X-Ray 04/26/23 16:10 IMPRESSION: Normal appearing postoperative left total knee arthroplasty. Laboratory Results WBC 7.71 10^3/uL (3.29-11.43) 04/27/23 04:20 RBC 3.53 10^6/uL (3.85-5.65) L 04/27/23 04:20 Hgb 10.80 g/dL (11.27-16.99) L 04/27/23 04:20 Hct 32.2 % (37-53) L 04/27/23 04:20 MCV 91.2 fl (82-101) 04/27/23 04:20 MCH 30.6 pg (27-33) 04/27/23 04:20 MCHC 33.5 g/dL (30-55) 04/27/23 04:20 RDW 11.9 % (12.1-15.1) L 04/27/23 04:20 Plt Count 154 10^3/cmm (157-399) L 04/27/23 04:20 MPV 10.0 fL (7.4-10.4) 04/27/23 04:20 Neut % (Auto) 71.7 % 04/27/23 04:20 Lymph % (Auto) 20.1 % 04/27/23 04:20 Frontier % (Auto) 7.8 % 04/27/23 04:20 Eos % (Auto) 0.0 % 04/27/23 04:20 Baso % (Auto) 0.3 % 04/27/23 04:20 Neut # (Auto) 5.53 10^3/uL (1.8-7.7) 04/27/23 04:20 Lymph # (Auto) 1.6 10^3/uL (0.8-4.8) 04/27/23 04:20 Frontier # (Auto) 0.6 10^3/uL (0.2-0.9) 04/27/23 04:20 Eos # (Auto) 0.0 10^3/uL (0.0-0.8) 04/27/23 04:20 Baso # (Auto) 0.0 10^3/uL (0.0-0.1) 04/27/23 04:20 Nucleated RBC % (auto) 0 % 04/27/23 04:20 Nucleated RBCs # 0.0 /100WBC 04/27/23 04:20 Sodium 133 mmol/L (136-145) L 04/27/23 04:20 Potassium 4.7 mmol/L (3.5-5.1) 04/27/23 04:20 Chloride 101 mmol/L (98-107) 04/27/23 04:20 Carbon Dioxide 22 mmol/L (22-29) 04/27/23 04:20 Anion Gap 14.7 (5-19) 04/27/23 04:20 BUN 22 mg/dL (8-23) 04/27/23 04:20 Creatinine 1.2 mg/dL (0.7-1.2) 04/27/23 04:20 GFR Calculation Not Reportable 04/27/23 04:20 Glucose 117 mg/dL (65-115) H 04/27/23 04:20 POC Glucose 107 mg/dL (70-110) 04/26/23 10:15 Calculated Osmolality 280 mOsm/kg (285-295) L 04/27/23 04:20 Calcium 9.2 mg/dL (8.5-10.5) 04/27/23 04:20 Vitals Last Vital Signs Temp 97.5 F L 04/27/23 12:00 Pulse 100 04/27/23 12:00 Resp 18 04/27/23 12:00 BP 152/80 04/27/23 12:00 Pulse Ox 93 04/27/23 12:00 O2 Del Method Room Air 04/27/23 08:00 Discharge Plan Discharge Patient Disposition: Home Health Service Condition: Stable Prescriptions: New aspirin 325 mg Tablet,Delayed Release (Dr/Ec) 325 mg PO DAILY 30 Days Qty: 0 0RF celecoxib 200 mg Capsule 200 mg PO 1XD 30 Days Qty: 30 1RF hydrocodone-acetaminophen 10-325 mg Tablet 1 tab PO Q4H PRN (Reason: Moderate Pain) 7 Days Qty: 30 0RF Continued amlodipine 10 mg tablet 10 mg PO DAILY cetirizine 10 mg tablet 10 mg PO DAILY PRN (Reason: Allergy Symptoms) hydrocodone-acetaminophen 10-325 mg tablet 1 tab PO Q6H PRN (Reason: Pain) metformin [Glucophage] 500 mg tablet 500 mg PO BID nitroglycerin [Nitrostat] 0.4 mg tablet, sublingual 0.4 mg SUBLINGUAL Q5M PRN (Reason: Chest Pain) Rx Instructions: do not exceed 3 doses per episode mometasone [Nasonex] 50 mcg/actuation spray,non-aerosol 2 spray INTRANASAL DAILY Rx Instructions: administer into each nostril lisinopril 40 mg tablet 40 mg PO DAILY albuterol sulfate [ProAir HFA] 90 mcg/actuation HFA aerosol inhaler 2 puff INHALATION Q6H PRN (Reason: Allergy Symptoms) lorazepam 1 mg tablet 1 mg PO DAILY PRN (Reason: Anxiety) atorvastatin 40 mg tablet 40 mg PO DAILY amitriptyline 25 mg tablet 25 mg PO .qhs pantoprazole 40 mg tablet,delayed release (DR/EC) 40 mg PO DAILY metoprolol tartrate 50 mg tablet 50 mg PO BID Qty: 90 3RF triamterene-hydrochlorothiazid 37.5-25 mg tablet 1 tab PO DAILY Qty: 90 3RF magnesium oxide 400 mg magnesium tablet 400 mg PO QDAY Qty: 90 3RF Held ibuprofen [IBU] 800 mg tablet 800 mg PO TID Hold Instructions: Resume on 05/13/23. Resume after completing Celebrex Discharge Orders: Discharge Order (Routine); Ordered 04/27/23 Ordered By: Ludy Key Other Ambulatory Orders: DME: Walker (Order) Location: None Selected Ordered By: Ludy Key Referrals: Ludy Key MD [Physician] - 05/11/23 8:15 am () Dom Fuentes DO [Primary Care Provider] - 05/03/23 10:20 am Discharge Diet: Advance as tolerated and Usual diet Discharge Activity: Increase activity as tolerated, Limit activity as in structed, Use walker/crutches as instructed and As per PT/OT instructions Patient Instructions: Hydrocodone/Acetaminophen (By mouth), Aspirin (By mouth), Celecoxib (By mouth), Total Knee Replacement (GEN), Joint Replacement Stoplight, Opioid Safety Activity Restrictions/Additional Instructions: Ice to left knee. Gait training, ambulation, and strengthening per physical therapy. You may shower, but leave the clear plastic dressing in place. Do not soak your knee in water. Discharge Attestations Time Spent in Discharge Care*: greater than 30 min Specific Discharge Activities: educating patient, documenting/other paperwork and evaluating patient/reviewing data Quality Metrics Clinical Quality Measures [ No reported AMI, CVA or VTE this stay] Coding Level of Care Code Acute Code for Chg Fwd Diagnoses Status post total right knee replacement using cement Z96.651 Primary osteoarthritis of left knee M17.12 Varus deformity, not elsewhere classified, left knee M21.162
[2023-04-27 16:33] VITALS: BP 152/80; PULSE 100; RESP 18; TEMP 36.4; O2SAT 93
== END 2023-04-27 16:25 | disposition home health service (06) ==
LOC: MEDSURG 14:01
PROVIDERS: Nurse Practitioner; Admitting Provider Specialist; PCP Electrodiagnostic Medicine; Visit Provider Specialist
PROC: 8E0Y0CZ Robotic Assisted Procedure of Lower Extremity, Open Approach (ICD-10-PCS; CPT 27447; principal; 2023-04-26 10:45)
DX: M17.12 Unilateral primary osteoarthritis, left knee (principal); M24.562 Contracture, left knee; M21.162 Varus deformity, not elsewhere classified, left knee; I25.10 Atherosclerotic heart disease of native coronary artery without angina pectoris; Z95.1 Presence of aortocoronary bypass graft; I11.0 Hypertensive heart disease with heart failure; I50.9 Heart failure, unspecified; K21.9 Gastro-esophageal reflux disease without esophagitis; E11.9 Type 2 diabetes mellitus without complications; E78.5 Hyperlipidemia, unspecified; E66.01 Morbid (severe) obesity due to excess calories; Z68.39 Body mass index [BMI] 39.0-39.9, adult
CPT/HCPCS: 20985; 27447; 36415; 36416; 51702; 73560; 80048; 82962; 85025; 97110; 97116; 97161; 97165; C1776; C9290; G0378; J0131; J0690; J2250; J2371; J2405; J2704; J2795; J3010; J3370; J3490; J7030

== ENCOUNTER → 2023-05-11 08:03 | Outpatient (BNVA) | payer OTHER, MEDICAID, SELFPAY | PROVIDERS: PCP Electrodiagnostic Medicine; Visit Provider Nurse Practitioner | DX: Z96.651 Presence of right artificial knee joint (principal); Z96.652 Presence of left artificial knee joint; M17.12 Unilateral primary osteoarthritis, left knee | CPT/HCPCS: 73560; 73565; 99024 ==

== ENCOUNTER → 2023-06-08 09:30 | Outpatient (BNVA) | payer OTHER, MEDICAID, SELFPAY | PROVIDERS: Visit Provider Nurse Practitioner | DX: Z96.652 Presence of left artificial knee joint (principal); M17.12 Unilateral primary osteoarthritis, left knee | CPT/HCPCS: 73560; 73565; 99024 ==

== ENCOUNTER 2023-06-10 08:26 | Outpatient (RCR) | payer MEDICARE, MEDICAID, SELFPAY | END 2023-07-06 23:59 | disposition home or self-care (01) | LOC: SPT 08:26 | PROVIDERS: Visit Provider Specialist | DX: Z47.1 Aftercare following joint replacement surgery (principal); Z96.652 Presence of left artificial knee joint | CPT/HCPCS: 97110; 97161 ==

== ENCOUNTER → 2023-07-04 09:29 | Outpatient (BNVA) | payer MEDICARE, MEDICAID, SELFPAY | PROVIDERS: PCP Electrodiagnostic Medicine; Visit Provider Nurse Practitioner | DX: M17.11 Unilateral primary osteoarthritis, right knee (principal); Z96.652 Presence of left artificial knee joint; E11.9 Type 2 diabetes mellitus without complications; Z01.818 Encounter for other preprocedural examination | CPT/HCPCS: 36415; 73560; 73565; 80053; 81001; 83036; 85025; 99214 ==

== ENCOUNTER 2023-07-07 06:00 | Outpatient (RCR) | payer MEDICARE, MEDICAID, SELFPAY | END 2023-07-18 23:59 | disposition home or self-care (01) | LOC: SPT 06:00 | PROVIDERS: PCP Electrodiagnostic Medicine; Visit Provider Specialist | DX: Z47.1 Aftercare following joint replacement surgery (principal); Z96.652 Presence of left artificial knee joint | CPT/HCPCS: 97110 ==

== ENCOUNTER 2023-07-07 08:24 | Outpatient (CLI) | payer MEDICARE, MEDICAID, SELFPAY ==
--- NOTE | 2023-07-07 08:33 | XR_ITS ---
WS: [id number] Right knee, AP and lateral views standing, 07/07/2023 Clinical Data: right knee pain Comparison: AP both knees, left knee, 07/04/2023 Findings: There is medial joint compartment narrowing with sclerosis of the adjoining articular surfaces. There are spurs of the medial femoral condyle, lateral femoral condyle and lateral tibial plateau. The rig ht patella shows extensive spurring. There are no fractures or dislocations. There are soft tissue ca lcifications posterior to the knee which may be synovial and vascular. There are small surgical clips in the posterior distal thigh. Impression: Severe osteoarthritis of the right knee. Kellgren-Keith Classification: grade 4 (severe): large osteophytes, marked narrowing of joint spac e, severe sclerosis and definite deformity of bone ends
== END 2023-07-07 08:25 | disposition home or self-care (01) ==
LOC: RAD 08:25
PROVIDERS: PCP Electrodiagnostic Medicine; Visit Provider Nurse Practitioner
DX: M17.11 Unilateral primary osteoarthritis, right knee (principal)
CPT/HCPCS: 73560; 73565

== ENCOUNTER 2023-08-05 11:35 | Outpatient (CLI) | payer MEDICARE, MEDICAID, SELFPAY ==
--- NOTE | 2023-08-05 12:30 | CT_ITS ---
WS: [id number] CT RIGHT knee, noncontrast HISTORY: pre-op planning for TKA TECHNIQUE: Protocol for [facility] total knee replacement has been obtained. This includes axial imaging th rough the RIGHT hip, RIGHT knee and RIGHT ankle. DLP: 963.12 mGy.cm COMPARISON: Radiograph 07/07/2023 Symmetric moderate joint space narrowing involving the SI joints. No bone destruction. Mild narrowing of the hip joints and osteophytic ridging around the acetabulum. There is motion artifact. No soft t issue abnormality. RIGHT knee: Severe tricompartment osteoarthritis. Large osteophytes with joint space narrowing. Osteo phyte encroaching into the intercondylar notch. There is no fracture. There is a large osteophyte ext ending posterior and medial to the fibular head. Small joint effusion. Moderate-sized Wylie's cyst wi th several calcified loose bodies. Negative imaging through the ankle. Mild motion artifact. IMPRESSION: CT imaging provided for [facility] robotic total knee replacement. Severe RIGHT hip osteoarthritis. Large Wylie's cyst with multiple calcified loose bodies.
== END 2023-08-05 11:36 | disposition home or self-care (01) ==
LOC: RAD 11:35
PROVIDERS: PCP Electrodiagnostic Medicine; Visit Provider Nurse Practitioner
DX: M17.11 Unilateral primary osteoarthritis, right knee (principal); M71.21 Synovial cyst of popliteal space [Baker], right knee; M23.41 Loose body in knee, right knee
CPT/HCPCS: 73700

== ENCOUNTER 2023-08-16 12:54 | Observation (INO) | payer MEDICARE, MEDICAID, SELFPAY ==
[2023-08-16] VITALS (19 sets, daily range): BP systolic 95–167; BP diastolic 66–91; PULSE 76–116; RESP 14–18; TEMP 36.3–36.9; O2SAT 92–98; BMI 49.5
[2023-08-16] MEDS: sodium chloride 0.9% 1,000 ML 30 ML IV (06:43)
[2023-08-16] MEDS: acetaminophen 1,000 MG/100 ML PIGGYBACK 400 MG IV ×3 (06:43→23:19)
[2023-08-16] MEDS: CELEcoxib 200 mg Capsule 400 MG PO (06:44)
[2023-08-16] MEDS: gabapentin 300 mg Capsule PO (06:44)
--- NOTE | 2023-08-16 07:06 | P.HP_ITS ---
Same Day Surgery H&P Indication for Procedure/HPI DATE OF PROCEDURE: August 16, 2023 CHIEF COMPLAINT/INDICATIONFOR SURGICAL PROCEDURE: Right knee pain PREOP DIAGNOSIS: Right knee osteoarthritis PLANNED PROCEDURE: Operation Date: 08/16/23 08:05 Proposed Procedures p Nestor Robot Total Knee Arthroplasty(Right) - Ludy Key MD Medications/Allergies* None Home Medications Medication Instructions Recorded Confirmed Type albuterol sulfate 90 mcg/actuation 2 puff inhalation Q6H PRN Allergy 10/17/19 08/15/23 History aerosol inhaler (ProAir HFA) Symptoms amlodipine 10 mg tablet 10 mg PO DAILY 10/17/19 08/15/23 History cetirizine 10 mg tablet 10 mg PO DAILY PRN Allergy Symptoms 10/17/19 08/15/23 History hydrocodone 10 mg-acetaminophen 1 tab PO Q6H PRN Pain 10/17/19 08/16/23 History 325 mg tablet lisinopril 40 mg tablet 40 mg PO DAILY 10/17/19 08/15/23 History lorazepam 1 mg tablet 1 mg PO DAILY PRN Anxiety 10/17/19 08/15/23 History metformin 500 mg tablet 500 mg PO BID 10/17/19 08/15/23 History (Glucophage) mometasone 50 mcg/actuation nasal 2 spray intranasal DAILY 10/17/19 08/15/23 History spray (Nasonex) nitroglycerin 0.4 mg sublingual 0.4 mg sublingual Q5M PRN Chest 10/17/19 08/15/23 History tablet (Nitrostat) Pain amitriptyline 25 mg tablet 25 mg PO .qhs 04/25/23 08/15/23 History atorvastatin 40 mg tablet 40 mg PO DAILY 04/25/23 08/15/23 History pantoprazole 40 mg tablet,delayed 40 mg PO DAILY 04/25/23 08/15/23 History release triamterene 37.5 1 tab PO DAILY PRN Edema 08/15/23 08/15/23 History mg-hydrochlorothiazide 25 mg tablet Allergies/Adverse Reactions Allergy/AdvReac Type Severity Reaction Status Date / Time No Known Allergies Allergy Unknown Verified 07/04/23 09:32 Current Medications: Generic Name Dose Route Start Last Admin Trade Name Freq PRN Reason Stop Dose Admin Sodium Chloride 1,000 mls @ 30 mls/hr 08/16/23 06:30 08/16/23 06:43 Sodium Chloride 0.9% IV 08/17/23 06:29 30 mls/hr .Q24H JUSTINA Administration Pertinent History/Comorbid Conditions* Medical History (Updated 07/06/23 @ 20:01 by ROBYN Cernshaw) Primary osteoarthritis of right knee Obesity HTN (hypertension) Cardiomyopathy ASHD (arteriosclerotic heart disease) Dyslipidemia Diabetes Surgical History (Updated 05/12/23 @ 19:28 by ROBYN Crenshaw) History of arthroplasty of left knee Diagnosis: Severe degenerative arthritis left knee with varus deformity and flexion contracture Procedure done: Left total knee arthroplasty with Nestor guidance Date of Surgery: 04/26/2023 Surgeon: Dr. Ludy Key MD Implants: The [employer] total knee system with a size 5 triathlon beaded cruciate retaining femur left, a triathlon titanium tibial component size 5 beaded, a triathlon X3 tibial bearing CS insert size 5 X 11 mm and a beaded triathlon titanium asymmetric patella size 32 x 10 mm S/P CABG (coronary artery bypass graft) S/P PTCA (percutaneous transluminal coronary angioplasty) Family History (Updated 10/17/19 @ 10:49 by Justina Lim RN) Diabetes CAD (coronary artery disease) Brother Cancer Mother Stroke Social History Smoking and tobacco/nicotine status: never used tobacco/nicotine Alcohol intake: former Substance/Drug Use: never Household members: spouse Marital status: service: No Current occupational status: retired Pertinent Exam Findings alert, oriented x 3, clear to auscultation bilaterally, regular rate & rhythm, operative site marked and procedure specific exam findings (Varus deformity and flexion contracture right knee) Related Problem List Diagnoses (1) Primary osteoarthritis of right knee: (2) Varus deformity, not elsewhere classified, right knee: Recommendations Surgery/Procedure today Coding Level of Care Code Acute Code for Chg Fwd Diagnoses Primary osteoarthritis of right knee M17.11 Varus deformity, not elsewhere classified, right knee M21.161
--- NOTE | 2023-08-16 07:56 | P.ANESASSM_ITS ---
Pre-Anesthetic Assessment Height/Weight: Height 1.55 m Weight 118.841 kg Temp Pulse Resp BP Pulse Ox O2 Del Method 97.8 F 98 17 167/90 95 Room Air 08/16/23 06:31 08/16/23 06:31 08/16/23 06:31 08/16/23 06:31 08/16/23 06:31 08/16/23 06:31 Preop Diagnosis: Right knee osteoarthritis Operation Date: 08/16/23 08:05 Proposed Procedures p Nestor Robot Total Knee Arthroplasty(Right) - Ludy Key MD Familial anesthetic complications: None Was Beta Yannick taken within 24 hours: Yes Was Clonidine taken within 24 hours: N/A Last intake: Intake Last Liquid Date 08/15/23 Last Liquid Time 20:00 Last Solid Date 08/15/23 Last Solid Time 17:00 Social No alcohol and No tobacco Exam alert, oriented x 3, clear to auscultation bilaterally and regular rate & rhythm Airway Mallampati: Class III Dentition: full CV/HEM Coronary Artery Disease (cabg and stents) and Hypertension GI Gastroesophageal Reflux Disease Metabolic Diabetes Mellitus and Morbid Obesity (abdominal prominent) Anesthetic Plan ASA status: 4 Anesthesia: Regional (specify below) Risk of > 500 ml blood loss (7ml/kg in children): No Medications/Allergies Home Medications Medication Instructions Recorded Confirmed Last Taken Type albuterol sulfate 90 mcg/actuation 2 puff inhalation Q6H PRN Allergy 10/17/19 08/15/23 08/15/23 History aerosol inhaler (ProAir HFA) Symptoms amlodipine 10 mg tablet 10 mg PO DAILY 10/17/19 08/15/23 08/15/23 History cetirizine 10 mg tablet 10 mg PO DAILY PRN Allergy Symptoms 10/17/19 08/15/23 08/14/23 History hydrocodone 10 mg-acetaminophen 1 tab PO Q6H PRN Pain 10/17/19 08/16/23 08/16/23 History 325 mg tablet lisinopril 40 mg tablet 40 mg PO DAILY 10/17/19 08/15/23 08/15/23 History lorazepam 1 mg tablet 1 mg PO DAILY PRN Anxiety 10/17/19 08/15/23 08/14/23 History metformin 500 mg tablet 500 mg PO BID 10/17/19 08/15/23 08/15/23 History (Glucophage) mometasone 50 mcg/actuation nasal 2 spray intranasal DAILY 10/17/19 08/15/23 08/15/23 History spray (Nasonex) nitroglycerin 0.4 mg sublingual 0.4 mg sublingual Q5M PRN Chest 10/17/19 08/15/23 Unknown History tablet (Nitrostat) Pain metoprolol tartrate 50 mg tablet 50 mg PO BID #90 tabs 07/17/21 08/15/23 08/15/23 Rx amitriptyline 25 mg tablet 25 mg PO .qhs 04/25/23 08/15/23 08/15/23 History atorvastatin 40 mg tablet 40 mg PO DAILY 04/25/23 08/15/23 08/15/23 History pantoprazole 40 mg tablet,delayed 40 mg PO DAILY 04/25/23 08/15/23 08/15/23 History release celecoxib 200 mg capsule 200 mg PO 1XD 30 days #30 caps 04/27/23 08/15/23 08/15/23 Rx magnesium oxide 400 mg PO QDAY #90 tabs 08/10/23 08/15/23 08/15/23 Rx triamterene 37.5 1 tab PO DAILY PRN Edema 08/15/23 08/15/23 Unknown History mg-hydrochlorothiazide 25 mg tablet Allergies Allergy/AdvReac Type Severity Reaction Status Date / Time No Known Allergies Allergy Unknown Verified 07/04/23 09:32 Current Medications Generic Name Dose Route Start Last Admin Trade Name Freq PRN Reason Stop Dose Admin Sodium Chloride 1,000 mls @ 30 mls/hr 08/16/23 06:30 08/16/23 06:43 Sodium Chloride 0.9% IV 08/17/23 06:29 30 mls/hr .Q24H JUSTINA Administration PFSH Anesthesia Medical History (Updated 08/16/23 @ 07:10 by Ludy Key MD) Primary osteoarthritis of right knee Obesity HTN (hypertension) Cardiomyopathy ASHD (arteriosclerotic heart disease) Dyslipidemia Diabetes Surgical History History of arthroplasty of left knee Diagnosis: Severe degenerative arthritis left knee with varus deformity and flexion contracture Procedure done: Left total knee arthroplasty with Nestor guidance Date of Surgery: 04/26/2023 Surgeon: Dr. Ludy Key MD Implants: The [employer] total knee system with a size 5 triathlon beaded cruciate retaining femur left, a triathlon titanium tibial component size 5 beaded, a triathlon X3 tibial bearing CS insert size 5 X 11 mm and a beaded triathlon titanium asymmetric patella size 32 x 10 mm S/P CABG (coronary artery bypass graft) S/P PTCA (percutaneous transluminal coronary angioplasty) Family History Brother CAD (coronary artery disease) Mother Cancer Other Diabetes Stroke Social History Smoking and tobacco/nicotine status: never used tobacco/nicotine Alcohol intake: former Substance/Drug Use: never Household members: spouse Marital status: service: No Current occupational status: retired Data Anesthesia 08/16/23 07:00 BMP 08/16/23 07:00 Potassium 5.0 Cardiac Studies: 2 Echocardiogram Ultrasound 06/03/20
--- NOTE | 2023-08-16 07:58 | ANES.PROC ---
Anesthesia Procedures Procedure/Date: 08/16/23 Nerve Block ^: Nerve Block 1: Main Anesthesia: spinal anesthesia block Time Out Performed: Yes Consent: requested by attending/covering physician, from patient, from other, risks and benefits reviewed and patient agrees to proceed Nerve block location: adductor canal (R) Anesthesia monitors applied: pulse oximetry, EKG, BP cuff and oxygen Nerve block position: supine Anesthetic Used: ropivicaine 0.5% (20 ml) and with decadron (3 mg) Ultrasound used to: recognize landmarks and visualize and ID femerol nerve Nerve Stimulator Used?: No Interscalene/Femoral BLK: 4 stimuplex 21 g needle used for position and inplane approach, visualize local anesthetic spread and no vascular puncture identified Injection: neg aspiration of heme Patient Tolerated Procedure: well Complications: none
[2023-08-16] MEDS: ceFAZolin 2,000 MG in sodium chloride 0.9% (plus) 50 ML 100 MG IV (08:30)
[2023-08-16] MEDS: tranexamic acid 1,000 mg/10mL SDV 1000 MG IV (09:25)
[2023-08-16] MEDS: BUPivacaine liposome 13.3 mg/mL SDV 10 mL 266 MG INFILTRATI (09:49)
[2023-08-16] MEDS: BUPivacaine 0.5% INJ 30 mL 20 ML INJECTION (09:49)
[2023-08-16] MEDS: ceFAZolin 1,000 mg SDV 2000 MG IRRIGATION (09:50)
[2023-08-16] MEDS: vancomycin 1,000 MG SDV 1000 MG XX (09:50)
--- NOTE | 2023-08-16 12:35 | XRR_ITS ---
PROCEDURE INFORMATION: Exam: XR Right Knee Exam date and time: 08/16/2023 11:48 AM Age: 73 years old Clinical indication: Device placement; Joint replacement hardware; Additional info: Pacu images -- S/P RT tka TECHNIQUE: Imaging protocol: Radiologic exam of the right knee. Views: 1 or 2 views. COMPARISON: CT knee RT wo con* [id number] 08/05/2023 11:52 AM FINDINGS: Bones/joints: Postoperative changes associated with recent total-knee arthroplasty. No evidence of hardware complication. No radiographic evidence of acute fracture or dislocation. Alignment anatomic. Intra-articular fluid and gas, consistent with recent surgery. Soft tissues: Soft tissue swelling and gas, consistent with recent surgery. XR/XR knee RT 1-2V [id number] IMPRESSION: Postoperative changes associated with recent total-knee arthroplasty.
--- NOTE | 2023-08-16 12:53 | PM.OP ---
Operative Report Date of procedure: August 16, 2023 Pre-op diagnosis: Degenerative osteoarthritis with varus deformity right knee Post-op diagnosis: Degenerative osteoarthritis with varus deformity right knee Post-op findings: Severe degenerative changes within the knee with very large osteophytes and varus deformity. Complete denudement of cartilage. Procedure done: Right total knee arthroplasty with Nestor Guidance Implants: The [place] total knee system with a size 5 triathlon beaded cruciate retaining femur right, a triathlon titanium tibial component size 5 beaded, a triathlon X3 tibial bearing CS insert size 5 X 10 mm and a beaded triathlon titanium asymmetric patella size 32 x 10 mm Specimens removed/disposition: Bone, disposed of Surgeon: Ludy Key MD Estate Planning Counselor: Paige Bird, nurse practitioner, who services were essential for positioning, retraction, closure, and completion of the surgical procedure Estimated blood loss (mL): 270 Tourniquet time (min): 0 (Not utilized) IV fluids (mL): 1,100 Urine output (mL): 200 Complications: None Findings: As noted above Condition: stable Disposition: PACU (Then to floor for postoperative rehabilitation and pain management) Brief History: This is an established 73-year-old gentleman who previously underwent left total knee arthroplasty on April 26, 2023. The patient has done well following this and wished to proceed today with right total knee arthroplasty. Risks and complications were discussed with him in the office. Consents were signed and questions were answered. Prior to his operative treatment of the left knee, the patient had been unable to ambulate and was primarily severely limited in his activities of daily living. The patient recently has been ambulating in his home and using a cane. He is doing very well and is comfortable. Plans are made for right total knee arthroplasty. The patient is anticipating discharge to home tomorrow. Procedure: The patient was brought to the operating theater, and after undergoing spinal anesthesia with supplemental MAC, as well as an adductor canal block, ASA 4, the right lower extremity was prepped with Dura-Prep and draped in usual fashion following placement of a tourniquet high on the leg. The leg was then draped free.? Tourniquet was not elevated during the case.? A surgical pause was performed, and at the time of the surgical pause, we confirmed the site and side of surgery. Additionally, we confirmed the appropriate and timely administration of preoperative antibiotics, Ancef 2 g and Transexemic acid 1 g.? The availability of equipment was confirmed, and the patient's identity was verbalized as well.? An additional transexemic acid 1 g was given at the end of the surgical procedure as well. Following the surgical pause, an incision was made centering over the patella continuing proximally and distally as necessary to allow access to the knee joint. Dissection continued through skin and soft tissues using a scalpel. Hemostasis was obtained using electrocautery. The skin incision was followed by a median parapatellar arthrotomy. The leg was extended, and the patella was able to be displaced laterally.? Appropriate arrays and markers were placed in appropriate position for use of the Nestor.? Preoperative planning had been accomplished and was discussed in detail with the [facility] public relations representative.? Intraoperative mapping of the femur and tibia was accomplished after the arrays were placed.? Internal markers were also placed.? Once we had accomplished the Nestor mapping, we began the appropriate resections for placement of the prosthesis.? The plan was for a cruciate retaining right total knee arthroplasty. Once appropriate mapping had been accomplished retraction was established using manual retraction by surgical technicians and also the Nestor leg positioner and retractors.? The knee was evaluated.? There was significant osteoarthritic change as well as slight flexion contracture along with his varus deformity.? Appropriate bone resection was accomplished using the Nestor.? The femur was sized to a size 5.? Following femoral cuts, attention was directed to the tibia.? Osteophytes were removed prior to this portion of the procedure.? We had performed a medial release at the beginning of the procedure to allow for placement of the array.? Proximal tibia was evaluated, and it was felt that appropriate size for the tibia was a size 5.? Tray was noted to fit nicely with good coverage.? Rim fit was accomplished with the size 5. A trial reduction was accomplished after osteophytes have been removed as well as the medial and lateral menisci.? We had removed the anterior cruciate ligament at the beginning of the case and preserved the posterior cruciate ligament.? Trial reduction was accomplished with a size 5 femoral cruciate retaining component and a size 5 CS tibial bearing insert which was 9 mm in thickness initially.? After evaluation, it was elected to proceed with a 10 mm insert for final implantation.? Alignment was felt to be appropriate as well.? Trial components were removed after the femur had been drilled.? Prior to removal of the tibial tray which had been pinned in position with appropriate rotation as determined by the Nestor plan, we broached the tibia.? Subsequently, the 4 drill holes were made for the prosthetic component.? All trial components were removed, and the wound was irrigated.? Plans were made for insertion of the prosthetic components.? Prior to this, the patella was manually prepared.? After resection of the articular surface with the jigging system, it was measured and measured a 32 mm patella.? We resected approximately 11 mm of patella.? Patellar height was restored with the patellar component. Once again, the wound was irrigated.? The Tritanium tibia was impacted into position.? The beaded femur was then impacted into position in a cementless fashion. The CS tibial insert was placed prior to placement of the femoral component. The patella was pressed into position with a patellar clamp.? Exparel was injected about the components deep and superficially.? The knee was then copiously irrigated with betadine and saline and suctioned dry. Attention was then directed to closure. Closure was accomplished with 0 Vicryl in the fascial tissues.? The suture line of 0 Vicryl was supplemented with strata fix, #1, with a running stitch from proximal to distal and a second running stitch from distal to proximal.? This was followed by Surgiflo and vancomycin powder.? Following this, a 2-0 Monocryl was used in the subcutaneous tissues, and the skin was closed with 3-0 Strata fix.? Care was taken to assure an excellent subcutaneous as well as skin closure.? A sterile dressing was then placed consisting of Dermabond Prineo, OpSite, ABD, sterile soft roll, and an Blade wrap including over the foot. The patient was returned the Recovery Room in a satisfactory condition. X-rays were obtained and reviewed there.? The patient will be discharged to the floor for postoperative rehabilitation and pain management. Related Problem List Diagnoses (1) Primary osteoarthritis of right knee: (2) Varus deformity, not elsewhere classified, right knee:
--- NOTE | 2023-08-16 13:46 | ANE.PACU2 ---
Inpatient post-anesthesia follow up: Airway intact: Yes Vital signs: Temperature 97.6 F Pulse Rate 79 Respiratory Rate 18 Blood Pressure 109/71 Pulse Oximetry 95 Oxygen Delivery Me thod Room Air Oxygen Flow Rate 6 Fraction of Inspir ed Oxygen Hydration adequate: Yes Nausea and vomiting: No Pain level: 1 Mental status: Baseline
[2023-08-16] MEDS: oxyCODONE 5 mg IR Tab/Cap PO ×2 (13:48→17:52)
[2023-08-16] MEDS: tranexamic acid 1,000 MG/100 ML PREMIX 600 MG IV (15:00)
[2023-08-16] MEDS: ceFAZolin 3,000 MG in sodium chloride 0.9% (plus) 100 ML 200 MG IV (17:53)
[2023-08-16] MEDS: metformin 500 mg Tablet PO (17:53)
[2023-08-16] MEDS: metoprolol tartrate 50 mg Tablet PO (17:53)
[2023-08-16] MEDS: sennosides-docusate Tablet 2 TAB PO (17:53)
[2023-08-16] MEDS: iron polysaccharide complex 150 mg Capsule PO (17:53)
[2023-08-16] MEDS: mupirocin oint 22 gm 1 APPLIC NASAL (17:53)
[2023-08-16] MEDS: chlorhexidine gluconate 0.12% Btl 473 mL 30 ML MUCOUS MEM ×2 (18:05→21:02)
[2023-08-16] MEDS: amitriptyline 25 mg Tablet PO (21:01)
[2023-08-16] MEDS: CELEcoxib 200 mg Capsule PO (21:02)
[2023-08-17] VITALS (7 sets, daily range): BP systolic 139–165; BP diastolic 76–90; PULSE 82–91; RESP 16–18; TEMP 36.5–37.1; O2SAT 95–98
[2023-08-17] MEDS: oxyCODONE 5 mg IR Tab/Cap PO ×3 (00:29→10:32)
[2023-08-17] MEDS: ceFAZolin 3,000 MG in sodium chloride 0.9% (plus) 100 ML 200 MG IV ×2 (00:30→08:33)
[2023-08-17 05:15] LABS: Basophils % 0.3 %; Hematocrit 31.9 % (37-53); Lymphocytes # 1.3 10^3/uL (0.8-4.8); Lymphocytes % 12.2 %; Mean Corpuscular HGB Conc 33.2 g/dL (30-55); Mean Corpuscular Hemoglobin 29.4 pg (27-33); Mean Corpuscular Volume 88.4 fl (82-101); Mean Platelet Volume 9.8 fL (7.4-10.4); Monocytes # 0.8 10^3/uL (0.2-0.9); Monocytes % 7.5 %; Neutrophils # 8.66 10^3/uL (1.8-7.7); Neutrophils % 79.6 %; Nucleated Red Blood Cells % 0 %; Platelet Count 176 10^3/cmm (157-399); Red Blood Count 3.61 10^6/uL (3.85-5.65); Red Cell Distribution Width 12.7 % (12.1-15.1); White Blood Count 10.87 10^3/uL (3.29-11.43)
[2023-08-17 05:40] LABS: Anion Gap 16.2 (5-19); Blood Urea Nitrogen 23 mg/dL (8-23); Calcium 8.6 mg/dL (8.5-10.5); Carbon Dioxide 20 mmol/L (22-29); Chloride 103 mmol/L (98-107); Creatinine Clr Calc Pharmacy 53.3573; Glucose 107 mg/dL (65-115); Osmolality Calculated 282 mOsm/kg (285-295); Potassium 5.2 mmol/L (3.5-5.1); Sodium 134 mmol/L (136-145)
[2023-08-17] MEDS: acetaminophen 1,000 MG/100 ML PIGGYBACK 400 MG IV (06:09)
[2023-08-17] MEDS: sennosides-docusate Tablet 2 TAB PO (08:30)
[2023-08-17] MEDS: metformin 500 mg Tablet PO (08:30)
[2023-08-17] MEDS: amlodipine 10 mg Tablet PO (08:30)
[2023-08-17] MEDS: pantoprazole DR 40 mg Tablet PO (08:31)
[2023-08-17] MEDS: iron polysaccharide complex 150 mg Capsule PO (08:31)
[2023-08-17] MEDS: metoprolol tartrate 50 mg Tablet PO (08:31)
[2023-08-17] MEDS: atorvastatin 40 mg Tablet PO (08:31)
[2023-08-17] MEDS: lisinopril 20 mg Tablet 40 MG PO (08:31)
[2023-08-17] MEDS: CELEcoxib 200 mg Capsule PO (08:31)
[2023-08-17] MEDS: aspirin 325 mg EC Tablet PO (08:31)
[2023-08-17] MEDS: chlorhexidine gluconate 0.12% Btl 473 mL 30 ML MUCOUS MEM (08:32)
[2023-08-17] MEDS: mupirocin oint 22 gm 1 APPLIC NASAL (08:32)
[2023-08-17 12:09] LABS: Glucose Point of Care 117 mg/dL (70-110)
--- NOTE | 2023-08-17 13:50 | PM.DCS ---
Discharge Providers Date of Admission: 08/16/23 12:54 Date of Discharge: August 17, 2023 Attending Provider at Admission: Ludy Key MD Attending Provider at Discharge: Ludy Key MD Primary Care Provider: Dom Fuentes DO Diagnoses at Discharge Discharge Diagnosis (1) Status post total right knee replacement not using cement: Status: Acute Permanent problem details: Date of procedure: August 16, 2023 Diagnosis: Degenerative osteoarthritis with varus deformity right knee Procedure done: Right total knee arthroplasty with Nestor Guidance Implants: The [place] total knee system with a size 5 triathlon beaded cruciate retaining femur right, a triathlon titanium tibial component size 5 beaded, a triathlon X3 tibial bearing CS insert size 5 X 10 mm and a beaded triathlon titanium asymmetric patella size 32 x 10 mm (2) Primary osteoarthritis of right knee: Status: Chronic (3) Varus deformity, not elsewhere classified, right knee: Status: Acute Reason for Visit Reason for Visit: M17.11 Brief History: This is an established 73-year-old gentleman who previously underwent left total knee arthroplasty on April 26, 2023. The patient has done well following this and wished to proceed today with right total knee arthroplasty. Risks and complications were discussed with him in the office. Consents were signed and questions were answered. Prior to his operative treatment of the left knee, the patient had been unable to ambulate and was primarily severely limited in his activities of daily living. The patient recently has been ambulating in his home and using a cane. He is doing very well and is comfortable. Plans are made for right total knee arthroplasty. The patient is anticipating discharge to home tomorrow. Hospital Course Hospital Course Patient was admitted on August 16, 2023 for same-day surgery for right total knee arthroplasty. The patient did well following the surgical intervention. He was up and ambulatory in his room. He was independent, and physical therapy felt he was safe for discharge to home. He had no evidence of complications or other issues of concern. Therefore, on postoperative day 1, the patient was discharged to home to follow-up with me in the office as scheduled. Physical Exam Const: COMMON NORMALS: no acute distress, average body habitus, patient oriented x3 and alert GENERAL APPEARANCE: cooperative and comfortable ORIENTATION/CONSCIOUSNESS: Yes awake HENMT: COMMON NORMALS: normocephalic and atraumatic HEAD & SCALP: normocephalic and atraumatic Eye: GENERAL EYE: appearance normal, both eyes and all related structures Chest: COMMONS NORMALS: normal inspection of the chest Resp: COMMON NORMALS: normal respiratory effort EFFORT & INSPECTION: Yes able to speak in complete sentences and Yes symmetric chest movement Extremity: RIGHT LOWER EXTREMITY: Yes knee joint (Dressing dry and intact.) Right knee: Yes inspection (Minimal ecchymosis and swelling.), Yes ROM (Able to straight leg raise.) and Yes neurovascular exam (No evidence of DVT.) Neuro: COMMON NORMALS: patient oriented x3 SENSORIUM/ORIENTATION: Yes alert Psych: COMMON NORMALS: mental status grossly normal APPEARANCE: Yes grossly normal ATTITUDE: Yes calm and Yes engaged ATTENTION/CONCENTRATION: Yes attention grossly intact Skin: COMMON NORMALS: no rashes or lesions noted GENERAL SKIN EXAM: no rashes or lesions noted Urinary Catheter Management: Noriega: Cath Placed During This Visit: yes, but has since been removed by the nurse Reason for Continuing Indwelling Catheter: Decision to DC Catheter Urinary Catheter Date of Insertion: 08/16/23 Urinary Catheter Time of Insertion: 08:50 Date Urinary Catheter Removed: 08/17/23 Time Urinary Catheter Discontinued: 06:19 Discharge Data Studies Completed and Pending Completed Studies During Hospitalization Category Date Time Status XR knee RT 1-2V [id number] Stat Exams 08/16/23 12:35 Completed Pending at discharge Category Date Time Status Complete Blood Count w/Auto AM LABS Lab 08/18/23 04:00 Ordered Complete Blood Count w/Auto AM LABS Lab 08/19/23 04:00 Ordered Radiology Impressions Knee X-Ray 08/16/23 12:35 IMPRESSION: Postoperative changes associated with recent total-knee arthroplasty. Laboratory Results WBC 10.87 10^3/uL (3.29-11.43) 08/17/23 04:28 RBC 3.61 10^6/uL (3.85-5.65) L 08/17/23 04:28 Hgb 10.60 g/dL (11.27-16.99) L 08/17/23 04:28 Hct 31.9 % (37-53) L 08/17/23 04:28 MCV 88.4 fl (82-101) 08/17/23 04:28 MCH 29.4 pg (27-33) 08/17/23 04:28 MCHC 33.2 g/dL (30-55) 08/17/23 04:28 RDW 12.7 % (12.1-15.1) 08/17/23 04:28 Plt Count 176 10^3/cmm (157-399) 08/17/23 04:28 MPV 9.8 fL (7.4-10.4) 08/17/23 04:28 Neut % (Auto) 79.6 % 08/17/23 04:28 Lymph % (Auto) 12.2 % 08/17/23 04:28 Labette % (Auto) 7.5 % 08/17/23 04:28 Eos % (Auto) 0.0 % 08/17/23 04:28 Baso % (Auto) 0.3 % 08/17/23 04:28 Neut # (Auto) 8.66 10^3/uL (1.8-7.7) H 08/17/23 04:28 Lymph # (Auto) 1.3 10^3/uL (0.8-4.8) 08/17/23 04:28 Labette # (Auto) 0.8 10^3/uL (0.2-0.9) 08/17/23 04:28 Eos # (Auto) 0.0 10^3/uL (0.0-0.8) 08/17/23 04:28 Baso # (Auto) 0.0 10^3/uL (0.0-0.1) 08/17/23 04:28 Nucleated RBC % (auto) 0 % 08/17/23 04:28 Nucleated RBCs # 0.0 /100WBC 08/17/23 04:28 Sodium 134 mmol/L (136-145) L 08/17/23 04:28 Potassium 5.2 mmol/L (3.5-5.1) H 08/17/23 04:28 Chloride 103 mmol/L (98-107) 08/17/23 04:28 Carbon Dioxide 20 mmol/L (22-29) L 08/17/23 04:28 Anion Gap 16.2 (5-19) 08/17/23 04:28 BUN 23 mg/dL (8-23) 08/17/23 04:28 Creatinine 1.4 mg/dL (0.7-1.2) H 08/17/23 04:28 GFR Calculation Not Reportable 08/17/23 04:28 Glucose 107 mg/dL (65-115) 08/17/23 04:28 POC Glucose 117 mg/dL (70-110) H 08/16/23 06:40 Calculated Osmolality 282 mOsm/kg (285-295) L 08/17/23 04:28 Calcium 8.6 mg/dL (8.5-10.5) 08/17/23 04:28 Vitals Last Vital Signs Temp 97.7 F 08/17/23 12:00 Pulse 88 08/17/23 12:00 Resp 18 08/17/23 12:00 BP 165/90 08/17/23 12:00 Pulse Ox 98 08/17/23 12:00 O2 Del Method Room Air 08/17/23 12:00 O2 Flow Rate 6 08/16/23 12:20 Discharge Plan Discharge Patient Disposition: Home Health Service Condition: Stable Prescriptions: New acetaminophen 500 mg Tablet 1,000 mg PO Q8H 15 Days Qty: 90 0RF aspirin 325 mg Tablet,Delayed Release (Dr/Ec) 325 mg PO DAILY 30 Days Qty: 0 0RF oxycodone 5 mg Tablet 5 - 10 mg PO Q4H PRN (Reason: Moderate Pain) 7 Days Qty: 30 0RF Continued amlodipine 10 mg tablet 10 mg PO DAILY cetirizine 10 mg tablet 10 mg PO DAILY PRN (Reason: Allergy Symptoms) hydrocodone-acetaminophen 10-325 mg tablet 1 tab PO Q6H PRN (Reason: Pain) metformin [Glucophage] 500 mg tablet 500 mg PO BID nitroglycerin [Nitrostat] 0.4 mg tablet, sublingual 0.4 mg SUBLINGUAL Q5M PRN (Reason: Chest Pain) Rx Instructions: do not exceed 3 doses per episode mometasone [Nasonex] 50 mcg/actuation spray,non-aerosol 2 spray INTRANASAL DAILY Rx Instructions: administer into each nostril lisinopril 40 mg tablet 40 mg PO DAILY albuterol sulfate [ProAir HFA] 90 mcg/actuation HFA aerosol inhaler 2 puff INHALATION Q6H PRN (Reason: Allergy Symptoms) lorazepam 1 mg tablet 1 mg PO DAILY PRN (Reason: Anxiety) atorvastatin 40 mg tablet 40 mg PO DAILY amitriptyline 25 mg tablet 25 mg PO .qhs pantoprazole 40 mg tablet,delayed release (DR/EC) 40 mg PO DAILY metoprolol tartrate 50 mg tablet 50 mg PO BID Qty: 90 3RF magnesium oxide 400 mg magnesium tablet 400 mg PO QDAY Qty: 90 0RF Rx Instructions: Patient must make appointment and be seen for further refills. celecoxib 200 mg Capsule 200 mg PO 1XD 30 Days Qty: 30 1RF triamterene-hydrochlorothiazid 37.5-25 mg tablet 1 tab PO DAILY PRN (Reason: Edema) Discharge Orders: Discharge Order (Routine); Ordered 08/17/23 Ordered By: Ludy Key Referrals: [facility] ([facility]) [Outside] Ludy Key MD [Physician] - 08/31/23 8:45 am Dom Fuentes DO [Staff Physician] - 08/24/23 1:00 pm Discharge Diet: Advance as tolerated and Usual diet Discharge Activity: Increase activity as tolerated, Limit activity as instructed, Use walker/crutches as instructed and As per PT/OT instructions Patient Instructions: Aspirin (By mouth), Oxycodone, Rapid Release (By mouth) (ETH-Oxydose, Oxy IR,..., Total Knee Replacement (GEN), Joint Replacement Stoplight, Opioid Safety Activity Restrictions/Additional Instructions: You may weight-bear as tolerated. Ambulation, strengthening, range of motion, and gait training per home physical therapy. You may shower, but do not immerse your leg in water. Maintain the clear plastic dressing in place until it comes off on its own. Discharge Attestations Time Spent in Discharge Care*: greater than 30 min Specific Discharge Activities: educating patient, educating and/or supporting family/caregiver, documenting/other paperwork and evaluating patient/reviewing data Quality Metrics Clinical Quality Measures [ No reported AMI, CVA or VTE this stay] Coding Level of Care Code Acute Code for Chg Fwd Diagnoses Status post total right knee replacement not using cement Z96.651 Primary osteoarthritis of right knee M17.11 Varus deformity, not elsewhere classified, right knee M21.161
== END 2023-08-17 14:58 | disposition home health service (06) ==
LOC: MEDSURG 12:56
PROVIDERS: Anesthesiology; Nurse Practitioner; Admitting Provider Specialist; PCP Electrodiagnostic Medicine; Visit Provider Specialist
PROC: 8E0Y0CZ Robotic Assisted Procedure of Lower Extremity, Open Approach (ICD-10-PCS; CPT 27447; principal; 2023-08-16 08:05)
DX: M17.11 Unilateral primary osteoarthritis, right knee (principal); I25.10 Atherosclerotic heart disease of native coronary artery without angina pectoris; Z95.1 Presence of aortocoronary bypass graft; Z95.5 Presence of coronary angioplasty implant and graft; I10 Essential (primary) hypertension; K21.9 Gastro-esophageal reflux disease without esophagitis; E11.9 Type 2 diabetes mellitus without complications; E66.01 Morbid (severe) obesity due to excess calories; Z68.43 Body mass index [BMI] 50.0-59.9, adult
CPT/HCPCS: 20985; 27447; 36415; 36416; 51702; 73560; 73562; 80048; 82962; 84132; 85025; 97110; 97116; 97161; 97165; C1776; C9290; G0378; J0131; J0690; J1100; J2250; J2371; J2704; J2795; J3370; J3490; J3535; J7030

== ENCOUNTER → 2023-08-31 12:59 | Outpatient (BNVA) | payer MEDICARE, MEDICAID, SELFPAY | PROVIDERS: Visit Provider Specialist | DX: Z96.651 Presence of right artificial knee joint (principal) | CPT/HCPCS: 73560; 73565; 99024 ==

== ENCOUNTER 2023-09-06 08:16 | Outpatient (RCR) | payer MEDICARE, MEDICAID, SELFPAY | END 2023-09-16 23:59 | disposition home or self-care (01) | LOC: SPT 08:16 | PROVIDERS: PCP Electrodiagnostic Medicine; Visit Provider Specialist | DX: Z47.1 Aftercare following joint replacement surgery (principal); Z96.651 Presence of right artificial knee joint | CPT/HCPCS: 97110; 97161 ==

== ENCOUNTER → 2023-11-23 13:32 | Outpatient (CLI) | payer MEDICARE, MEDICAID, SELFPAY ==
--- NOTE | 2023-11-23 13:50 | USCV_ITS ---
Tiago Branch Age: 73 Gender: M : 1950 Exam Date: 11/23/2023 14:11 Ordering Phys: Dom Fuentes DO Technologist: CT Exam Location: [facility] [place] Indication: sob BP: 110 / 71 HR: 78 Rhythm: Sinus Technical Quality: Adequate MEASUREMENTS (Male / Female) Normal Values 2D ECHO LVOT Diameter 2.3 cm LV Ejection Fraction MOD 2C 66.1 % LV Ejection Fraction 2C AL 66.4 % LA Diameter 4.7 cm RA Systolic Volume 4C AL 41.8 ml RA Systolic Volume 4C MOD 40.9 ml LA Sys Volume AL 43.2 cm cubed LA Sys Volume Index AL 17.1 cm cubed/m squared Aorta at Sinotubular Diameter 2.7 cm IVC Diameter 1.7 cm M-MODE LA Ao Ratio MM 1.8 AV Cusp Separation MM 2.0 cm DOPPLER AV Peak Velocity 100.0 cm/s LVOT Peak Velocity 106.0 cm/s AV Area Cont Eq vti 6.1 cm squared AV Area Cont Eq pk 4.3 cm squared MV Peak Velocity 86.0 cm/s MV Area PHT 3.5 cm squared Mitral E to A Ratio 0.9 TV Peak Velocity 95.5 cm/s TR Peak Velocity 104.0 cm/s TR Peak Gradient 4.3 mmHg TV Peak E Velocity 66.0 cm/s Right Atrial Pressure 3.0 mmHg Pulmonary Artery Systolic Pressu 7.3 mmHg PV Peak Velocity 156.0 cm/s FINDINGS Left Ventricle Normal left ventricular size, systolic function and wall thickness, with no regional wall motion abnormalities.left ventricular ejection fraction is estimated at 60 %. Grade I/IV diastolic dysfunction (abnormal relaxation filling pattern), normal to mildly elevated filling pressures. . Right Ventricle The right ventricle is normal in size and function. Right Atrium The right atrium is normal in size. Left Atrium The left atrium is normal in size. Mitral Valve Structurally normal mitral valve without significant stenosis or prolapse. There is no mitral regurgitation. Aortic Valve Moderate aortic valve calcification. No aortic valve stenosis. Trace aortic valve regurgitation. Tricuspid Valve Structurally normal tricuspid valve without significant stenosis trace regurgitation. Pulmonary artery systolic pressure is normal. Pulmonic Valve Structurally normal pulmonic valve without significant stenosis. There is no pulmonic regurgitation. Pericardium Normal pericardium without effusion. Aorta Normal ascending aorta dimension. IVC The inferior vena cava appears normal. CONCLUSIONS 1-Normal left ventricular size, systolic function and wall thickness, with no regional wall motion abnormalities.left ventricular ejection fraction is estimated at 60 %. Grade I/IV diastolic dysfunction (abnormal relaxation filling pattern), normal to mildly elevated filling pressures. . 2-There is no pericardial effusion. 3-No significant valve abnormalities. 4-Right atrial pressure is around 5 mm of mercury. Vera Odonnell MD (Electronically Signed) Final Date: 23 November 2023 21:45 S
== END | disposition home or self-care (01) ==
PROVIDERS: PCP Electrodiagnostic Medicine; Visit Provider Electrodiagnostic Medicine
DX: I50.9 Heart failure, unspecified (principal); I35.1 Nonrheumatic aortic (valve) insufficiency
CPT/HCPCS: 93306

== ENCOUNTER 2024-07-26 10:28 | Inpatient (IN) | payer MEDICARE, OTHER, MEDICAID, SELFPAY ==
[2024-07-26] VITALS (9 sets, daily range): BP systolic 108–149; BP diastolic 52–81; PULSE 73–92; RESP 16–19; TEMP 36.3–36.9; O2SAT 90–98; BMI 45.4
--- NOTE | 2024-07-26 10:41 | ECG_ITS ---
[facility] Test Date: 2024-07-26 Pat Name: Tiago Branch Department: Room: Gender: Male System Administration Advisor: : 1950 Requested By: Quintin Alfaro Order Number: [id number] Kandis MD: Samuel Carranza M.D. Measurements Intervals Mobile Rate: 70 P: 0 IN: 0 QRS: 32 QRSD: 101 T: 36 QT: 329 QTc: 356 Interpretive Statements ATRIAL FIBRILLATION LOW QRS VOLTAGE IN PRECORDIAL LEADS [QRS DEFLECTION < 1.0 mV IN CHEST LEADS] Compared to ECG 04/20/2015 11:40:49 Low QRS voltage now present Sinus rhythm no longer present Myocardial infarct finding no longer present Electronically Signed On 07-26-2024 17:50:49 RECORDING STUDIO SET UP WORKER by Samuel Carranza M.D. [email or web address]
--- NOTE | 2024-07-26 11:03 | XR_ITS ---
WS: [id number] Exam: XR chest 1V portable [id number] Date/Time of Exam: 07/26/2024 11:22 AM Reason For Exam: sob Comparison 11/09/2023. Lungs are fully expanded and clear. Cardiomediastinal silhouette is unremarkable. Signs of median sternotomy and CABG surgery. Bony structures are unremarkable. XR/XR chest 1V portable [id number] IMPRESSION: 1. No acute cardiopulmonary finding.
--- NOTE | 2024-07-26 11:17 | W.ED.RECABL ---
HPI - Recheck/Abnormal Lab/Rx General: Chief Complaint: Recheck/Abnormal Lab/Rx Stated Complaint: stephanie kidney failure Time Seen by Provider: 07/26/24 10:56 Source: patient Mode of arrival: ambulatory Limitations: no limitations History of Present Illness: 74-year-old male states he has a history of congestive heart failure states he has been taking increased doses of diuretics over the last month states that he saw his PCP who done blood work and told him he was in kidney failure and sent him to the ER. He states he has been urinating but he has felt very weak he denies any chest pain denies any vomiting or diarrhea. Related Data Home Medications ?Medication ?Instructions ?Recorded ?Confirmed cetirizine 10 mg tablet 10 mg PO DAILY PRN Allergy Symptoms 10/17/19 07/26/24 hydrocodone 10 mg-acetaminophen 1 tab PO Q6H PRN Pain 10/17/19 07/26/24 325 mg tablet lisinopril 40 mg tablet 40 mg PO DAILY 10/17/19 07/26/24 lorazepam 1 mg tablet 1 mg PO DAILY PRN Anxiety 10/17/19 07/26/24 nitroglycerin 0.4 mg sublingual 0.4 mg sublingual Q5M PRN Chest 10/17/19 07/26/24 tablet (Nitrostat) Pain amitriptyline 25 mg tablet 25 mg PO .qhs 04/25/23 07/26/24 pantoprazole 40 mg tablet,delayed 40 mg PO DAILY 04/25/23 07/26/24 release triamterene 37.5 1 tab PO DAILY PRN Edema 08/15/23 07/26/24 mg-hydrochlorothiazide 25 mg tablet albuterol sulfate 90 mcg/actuation 2 puff inhalation Q6H 07/26/24 07/26/24 aerosol inhaler furosemide 40 mg tablet 40 mg PO BID 07/26/24 07/26/24 metformin 500 mg tablet 500 mg PO BID 07/26/24 07/26/24 tamsulosin 0.4 mg capsule 0.4 mg PO BID 07/26/24 07/26/24 Previous Rx's ?Medication ?Instructions ?Recorded celecoxib 200 mg capsule 200 mg PO 1XD 30 days #30 caps 04/27/23 Allergies Allergy/AdvReac Type Severity Reaction Status Date / Time No Known Allergies Allergy Unknown Verified 11/02/23 12:39 Review of Systems Const: Reports: fatigue and malaise; Denies: fever(s), chills, body aches or change in appetite Eyes: Denies: blurry vision or eye discomfort ENMT: Denies: throat pain or dental pain Card: Denies: chest pain Resp: Denies: dyspnea GI: Denies: abdominal pain, nausea, vomiting or diarrhea : Denies: dysuria Musc: Denies: neck pain or back pain Skin/Breast: Denies: rash Neuro: Denies: headache(s) PFSH ED PFSH: Medical History Primary osteoarthritis of right knee Obesity HTN (hypertension) Cardiomyopathy ASHD (arteriosclerotic heart disease) Dyslipidemia Diabetes Surgical History History of arthroplasty of left knee Diagnosis: Severe degenerative arthritis left knee with varus deformity and flexion contracture Procedure done: Left total knee arthroplasty with Nestor guidance Date of Surgery: 04/26/2023 Surgeon: Dr. Ludy Key MD Implants: The [employer] total knee system with a size 5 triathlon beaded cruciate retaining femur left, a triathlon titanium tibial component size 5 beaded, a triathlon X3 tibial bearing CS insert size 5 X 11 mm and a beaded triathlon titanium asymmetric patella size 32 x 10 mm S/P CABG (coronary artery bypass graft) S/P PTCA (percutaneous transluminal coronary angioplasty) Family History Brother CAD (coronary artery disease) Mother Cancer Other Diabetes Stroke Social History Smoking and tobacco/nicotine status: never used tobacco/nicotine Alcohol intake: former Substance/Drug Use: never Household members: spouse Marital status: service: No Current occupational status: retired Physical Exam Const: COMMON NORMALS: patient oriented x3 HENMT: COMMON NORMALS: normocephalic and atraumatic HEAD & SCALP: normocephalic and atraumatic Eye: COMMON NORMALS: Equal, round and reactive pupils present and EOMs intact bilaterally PUPIL: Yes Equal, round and reactive pupils present Neck/C-Spine: COMMON NORMALS: full ROM and supple Chest: COMMONS NORMALS: normal inspection of the chest and normal palpation of entire chest wall Resp: COMMON NORMALS: normal respiratory effort, No retractions, No use of accessory muscles and clear to auscultation bilaterally AUSCULTATION: clear to auscultation bilaterally Cardio: COMMON NORMALS: regular rate, regular rhythm and No murmurs present (Cardio) RATE: regular rate RHYTHM: regular rhythm GI: COMMON NORMALS: Normal to inspection, nondistended, normoactive bowel sounds present, Soft to palpation, non-tender and no masses PALPATION: Yes Soft to palpation Extremity: COMMON NORMALS: normal to inspection and full ROM Neuro: COMMON NORMALS: patient oriented x3, moves all extremities and no focal motor deficits Psych: COMMON NORMALS: mental status grossly normal, Normal thought process present and cooperative THOUGHT PROCESS: Normal thought process present Skin: COMMON NORMALS: no rashes or lesions noted and no wounds GENERAL SKIN EXAM: no rashes or lesions noted Course Vital Signs: Vital signs: Vital Signs Temperature 97.8 F 07/26/24 11:02 Pulse Rate 79 07/26/24 11:58 Respiratory Rate 16 07/26/24 11:58 Blood Pressure 149/73 07/26/24 11:58 Pulse Oximetry 97 07/26/24 11:58 Oxygen Delivery Me thod Room Air 07/26/24 11:58 MDM - Recheck/Abnormal Lab/Rx Medical Decision Making Patient presents here with acute kidney injury he has elevated creatinine here potassium here is normal I did speak to hospitalist will admit for observation likely needs some hydration. Medical Records I reviewed the patient's medical records. Lab Data I reviewed the patient's lab results. 07/26/24 11:22 07/26/24 11:22 Radiology Impressions Chest X-Ray 07/26/24 11:03 IMPRESSION: 1. No acute cardiopulmonary finding. Laboratory Results WBC 6.37 10^3/uL (3.29-11.43) 07/26/24 11:22 RBC 4.03 10^6/uL (3.85-5.65) 07/26/24 11:22 Hgb 12.00 g/dL (11.27-16.99) 07/26/24 11:22 Hct 36.1 % (37-53) L 07/26/24 11:22 MCV 89.6 fl (82-101) 07/26/24 11:22 MCH 29.8 pg (27-33) 07/26/24 11:22 MCHC 33.2 g/dL (30-55) 07/26/24 11:22 RDW 12.2 % (12.1-15.1) 07/26/24 11:22 Plt Count 124 10^3/cmm (157-399) L 07/26/24 11:22 MPV 10.1 fL (7.4-10.4) 07/26/24 11:22 Neut % (Auto) 59.2 % 07/26/24 11:22 Lymph % (Auto) 31.9 % 07/26/24 11:22 [place] % (Auto) 6.8 % 07/26/24 11:22 Eos % (Auto) 1.3 % 07/26/24 11:22 Baso % (Auto) 0.6 % 07/26/24 11:22 Neut # (Auto) 3.78 10^3/uL (1.8-7.7) 07/26/24 11:22 Lymph # (Auto) 2.0 10^3/uL (0.8-4.8) 07/26/24 11:22 [place] # (Auto) 0.4 10^3/uL (0.2-0.9) 07/26/24 11:22 Eos # (Auto) 0.1 10^3/uL (0.0-0.8) 07/26/24 11:22 Baso # (Auto) 0.0 10^3/uL (0.0-0.1) 07/26/24 11:22 Nucleated RBC % (auto) 0 % 07/26/24 11:22 Nucleated RBCs # 0.0 /100WBC 07/26/24 11:22 Sodium 137 mmol/L (136-145) 07/26/24 11:22 Potassium 5.4 mmol/L (3.5-5.1) H 07/26/24 11:22 Chloride 101 mmol/L (98-107) 07/26/24 11:22 Carbon Dioxide 20 mmol/L (22-29) L 07/26/24 11:22 Anion Gap 21.4 (5-19) H 07/26/24 11:22 BUN 70 mg/dL (8-23) H 07/26/24 11:22 Creatinine 3.0 mg/dL (0.7-1.2) H 07/26/24 11:22 GFR Calculation Not Reportable 07/26/24 11:22 Glucose 117 mg/dL (65-115) H 07/26/24 11:22 Calculated Osmolality 306 mOsm/kg (285-295) H 07/26/24 11:22 Calcium 9.8 mg/dL (8.5-10.5) 07/26/24 11:22 Total Bilirubin 0.4 mg/dL (0.15-1.2) 07/26/24 11:22 AST 16 U/L (0-40) 07/26/24 11:22 ALT 14 U/L (0-41) 07/26/24 11:22 Alkaline Phosphatase 87 U/L (40-130) 07/26/24 11:22 NT-Pro-B Natriuret Pep 140 pg/mL (0-450) 07/26/24 11:22 Total Protein 7.8 g/dL (6.6-8.7) 07/26/24 11:22 Albumin 4.0 g/dL (3.5-5.2) 07/26/24 11:22 Globulin 3.8 g/dL (1.3-4.6) 07/26/24 11:22 No radiology studies performed this visit Discharge Plan Discharge Patient Disposition: Admitted As Inpatient Clinical Impression: Acute kidney injury Condition: Stable Prescriptions: No Action cetirizine 10 mg tablet 10 mg PO DAILY PRN (Reason: Allergy Symptoms) hydrocodone-acetaminophen 10-325 mg tablet 1 tab PO Q6H PRN (Reason: Pain) nitroglycerin [Nitrostat] 0.4 mg tablet, sublingual 0.4 mg SUBLINGUAL Q5M PRN (Reason: Chest Pain) Rx Instructions: do not exceed 3 doses per episode lisinopril 40 mg tablet 40 mg PO DAILY lorazepam 1 mg tablet 1 mg PO DAILY PRN (Reason: Anxiety) amitriptyline 25 mg tablet 25 mg PO .qhs pantoprazole 40 mg tablet,delayed release (DR/EC) 40 mg PO DAILY celecoxib 200 mg Capsule 200 mg PO 1XD 30 Days Qty: 30 1RF triamterene-hydrochlorothiazid 37.5-25 mg tablet 1 tab PO DAILY PRN (Reason: Edema) metformin 500 mg tablet 500 mg PO BID albuterol sulfate 90 mcg/actuation HFA aerosol inhaler 2 puff INHALATION Q6H furosemide 40 mg tablet 40 mg PO BID tamsulosin 0.4 mg capsule 0.4 mg PO BID Referrals: Dom Fuentes DO [Primary Care Provider] - Print Language: Nauruan Coding Level of Care Code ED Critical Care Nurse Specialist for Anne Dorsey
[2024-07-26 11:29] LABS: Basophils % 0.6 %; Eosinophils # 0.1 10^3/uL (0.0-0.8); Eosinophils % 1.3 %; Hematocrit 36.1 % (37-53); Lymphocytes % 31.9 %; Mean Corpuscular HGB Conc 33.2 g/dL (30-55); Mean Corpuscular Hemoglobin 29.8 pg (27-33); Mean Corpuscular Volume 89.6 fl (82-101); Mean Platelet Volume 10.1 fL (7.4-10.4); Monocytes # 0.4 10^3/uL (0.2-0.9); Monocytes % 6.8 %; Neutrophils # 3.78 10^3/uL (1.8-7.7); Neutrophils % 59.2 %; Nucleated Red Blood Cells % 0 %; Platelet Count 124 10^3/cmm (157-399); Red Blood Count 4.03 10^6/uL (3.85-5.65); Red Cell Distribution Width 12.2 % (12.1-15.1); White Blood Count 6.37 10^3/uL (3.29-11.43)
[2024-07-26 12:04] LABS: Alanine Aminotransferase 14 U/L (0-41); Alkaline Phosphatase 87 U/L (40-130); Anion Gap 21.4 (5-19); Aspartate Amino Transferase 16 U/L (0-40); Blood Urea Nitrogen 70 mg/dL (8-23); Calcium 9.8 mg/dL (8.5-10.5); Carbon Dioxide 20 mmol/L (22-29); Chloride 101 mmol/L (98-107); Creatinine Clr Calc Pharmacy 27.3413; Globulin 3.8 g/dL (1.3-4.6); Glucose 117 mg/dL (65-115); NT Pro B Type Natriuretic Pept 140 pg/mL (0-450); Osmolality Calculated 306 mOsm/kg (285-295); Potassium 5.4 mmol/L (3.5-5.1); Sodium 137 mmol/L (136-145); Total Bilirubin 0.4 mg/dL (0.15-1.2); Total Protein 7.8 g/dL (6.6-8.7)
[2024-07-26] MEDS: sodium chloride 0.9% 1,000 ML 999 ML IV (12:59)
--- NOTE | 2024-07-26 15:25 | CTR_ITS ---
PROCEDURE INFORMATION: Exam: CT Abdomen And Pelvis Without Contrast Exam date and time: 07/26/2024 3:56 PM Age: 74 years old Clinical indication: Abnormal findings; Abnormal lab test; Abnormal kidney function lab tests; Additional info: Yusuf, kidney failure TECHNIQUE: Imaging protocol: Computed tomography of the abdomen and pelvis without contrast. Sagittal and coronal reformatted images were also reviewed. Radiation optimization: All CT scans at this facility use at least one of these dose optimization techniques: automated exposure control; mA and/or kV adjustment per patient size (includes targeted exams where dose is matched to clinical indication); or iterative reconstruction. COMPARISON: CR XR hip RT 2-3V wo/w pel* 75000 03/31/2020 9:25 AM RADIATION DOSE METRICS: Total DLP (mGy-cm): 1420.13 FINDINGS: Limitations: Evaluation of solid organs and vasculature is limited without intravenous contrast. Lungs: Visualized lungs are clear. Calcified granuloma in the right middle lobe. Pleural spaces: No pleural effusion. Heart: Visualized portions of the heart are mildly enlarged. Coronary arteries: Extensive atherosclerotic calcification in the visualized coronary arteries. Liver: The liver is unremarkable. Gallbladder and biliary ducts: Few stones in the gallbladder. No gallbladder wall thickening. No biliary ductal dilatation. Pancreas: The pancreas is unremarkable. No pancreatic ductal dilatation. Spleen: Calcified granuloma in the spleen. Adrenal glands: The right and left adrenal glands are unremarkable. Kidneys and ureters: The right and left kidneys are unremarkable. The right and left ureters are unremarkable. No hydroureteronephrosis. No calcified urolithiasis. Stomach and bowel: Scattered diverticula in the colon. No evidence for diverticulitis. No acute abnormality in the stomach, small bowel, or colon. Ingested contents in the stomach. Appendix: The appendix is visualized and is unremarkable. No findings to suggest acute appendicitis. Intraperitoneal space: No free intraperitoneal air. No ascites. No loculated fluid collections to suggest an abscess. Vasculature: Mild atherosclerotic changes in the visualized arteries. No evidence for aortic aneurysm. Lymph nodes: No lymphadenopathy. Urinary bladder: The bladder is unremarkable. Reproductive: Unremarkable as visualized. Bones/joints: Multilevel degenerative changes of varying severity in the visualized spine. Moderate spinal canal stenosis at L2-L3. Multilevel foraminal stenosis of varying severity in the visualized spine. Bridging anterior osteophytes at the right and left sacroiliac joints, consistent with degenerative change. Moderate degenerative changes at the right and left hips. Soft tissues: No acute abnormality in the extra-abdominal soft tissues. CT/CT abdomen pelvis wo con [id number] IMPRESSION: 1. No acute abnormality in the abdomen or pelvis. 2. No hydroureteronephrosis. No calcified urolithiasis. 3. Cholelithiasis. 4. Scattered diverticula in the colon. No evidence for diverticulitis. 5. Incidental/nonacute findings are listed in the report.
[2024-07-26 15:29] LABS: Procalcitonin 0.06 ng/mL (0-0.5)
--- NOTE | 2024-07-26 15:29 | ECG_ITS ---
[facility] Test Date: 2024-07-26 Pat Name: Tiago Branch Department: Room: EDIP Gender: Male Inventory Assistant: : 1950 Requested By: Hong Price Order Number: [id number] Kandis MD: Samuel Carranza M.D. Measurements Intervals [place] Rate: 75 P: 21 PA: 205 QRS: 36 QRSD: 94 T: 33 QT: 352 QTc: 394 Interpretive Statements SINUS RHYTHM LOW QRS VOLTAGE IN PRECORDIAL LEADS [QRS DEFLECTION < 1.0 mV IN CHEST LEADS] NONSPECIFIC T-WAVE ABNORMALITY Compared to ECG 07/26/2024 10:41:53 T-wave abnormality now present Atrial fibrillation no longer present Electronically Signed On 07-26-2024 17:49:25 HR INTERN by Samuel Carranza M.D. [email or web address]
--- NOTE | 2024-07-26 15:42 | PM.HP ---
Providers/Chief Complaint Admitting Physician: Hong Price MD Primary Care Provider: Dom Fuentes DO Chief Complaint: dr stephanie kidney failure History of Present Illness Tiago Branch is a 74 year old male with past medical history of hypertension, morbid obesity, CAD post CABG, post PCI presents to the ER today as per directions from his PCPs office because of acute kidney injury on blood work. As per the patient he has been having worsening difficulty in breathing on exertion for the last 3 to 4 weeks for which his diuretics were increased by the PCP. On routine blood work today he was found to have NELLI hence he was direct to the ER. Patient states his breathing is better since increasing the medication but his urine output has been decreasing over the last 1 week. He is also complaining of chest pressure on and off for last 3 to 4 weeks. Does not follow-up with hotel server as an outpatient. He reports weight gain of around 15 pounds in the last 3 weeks. States appetite is appropriate. Review of Systems General: Reports: 10 or more systems reviewed and unremarkable except in HPI and below Const: Denies: fever(s), chills, body aches, change in appetite, change in weight, malaise, night sweats, diaphoresis, change in sleep pattern, daytime sleepiness or snoring Eyes: Denies: change in vision, blurry vision, photophobia, eye discomfort or eye discharge ENMT: Denies: throat pain, enlarged tonsils, hoarseness, mouth pain, oral sores, dry mouth, tinnitus, nasal congestion or post nasal drip Card: Denies: chest pain, palpitations, irregular heart rhythm, edema, swelling of feet/ankles, lightheadedness, syncope, pre-syncope, dyspnea on exertion, orthopnea, leg pain with exertion or acrocyanosis Resp: Denies: dyspnea, productive cough, non-productive cough, wheezing, stridor, pain on inspiration, change in phlegm color, hemoptysis or chest congestion GI: Denies: abdominal pain, nausea, vomiting, hematemesis, coffee ground emesis, dysphagia, heartburn, diarrhea, constipation, bloating, GI cramping, change in bowel habits, pain on defecation, hematochezia or melena : Denies: flank pain, difficulty urinating, dysuria, urinary frequency, urinary urgency, urinary hesitancy, urinary dribbling, difficulty starting urination, change in urine stream, nocturia or hematuria Musc: Denies: neck pain, back pain, extremity pain, joint pain, joint swelling, joint redness, joint stiffness or limited range of motion Neuro: Denies: headache(s), numbness in extremities, weakness in extremities, sensory changes, lack of coordination, difficulty walking, frequent falls, dizziness, vertigo, confusion, Slurred speech present, difficulty communicating thoughts or seizure-like activity Psych: Denies: anxiety, depression, mood swings, panic attacks, hopelessness or irritability Endo: Denies: polyuria, polydipsia, tired all the time, cold intolerance, excessive sweating, flushing or heat intolerance Yair/Lymph: Denies: easy bruising or easy bleeding All/Imm: Denies: tongue swelling, facial swelling or acute wheezing Medications/Allergies Home Medications ?Medication ?Instructions ?Recorded ?Confirmed ?Last Taken ?Type cetirizine 10 mg tablet 10 mg PO DAILY PRN Allergy Symptoms 10/17/19 07/26/24 08/14/23 History hydrocodone 10 mg-acetaminophen 1 tab PO Q6H PRN Pain 10/17/19 07/26/24 08/16/23 History 325 mg tablet lisinopril 40 mg tablet 40 mg PO DAILY 10/17/19 07/26/24 08/15/23 History lorazepam 1 mg tablet 1 mg PO DAILY PRN Anxiety 10/17/19 07/26/24 08/14/23 History nitroglycerin 0.4 mg sublingual 0.4 mg sublingual Q5M PRN Chest 10/17/19 07/26/24 Unknown History tablet (Nitrostat) Pain amitriptyline 25 mg tablet 25 mg PO .qhs 04/25/23 07/26/24 08/15/23 History pantoprazole 40 mg tablet,delayed 40 mg PO DAILY 04/25/23 07/26/24 08/15/23 History release celecoxib 200 mg capsule 200 mg PO 1XD 30 days #30 caps 04/27/23 07/26/24 08/15/23 Rx triamterene 37.5 1 tab PO DAILY PRN Edema 08/15/23 07/26/24 Unknown History mg-hydrochlorothiazide 25 mg tablet albuterol sulfate 90 mcg/actuation 2 puff inhalation Q6H 07/26/24 07/26/24 Unknown History aerosol inhaler furosemide 40 mg tablet 40 mg PO BID 07/26/24 07/26/24 Unknown History metformin 500 mg tablet 500 mg PO BID 07/26/24 07/26/24 Unknown History tamsulosin 0.4 mg capsule 0.4 mg PO BID 07/26/24 07/26/24 Unknown History Allergies Allergy/AdvReac Type Severity Reaction Status Date / Time No Known Allergies Allergy Unknown Verified 11/02/23 12:39 PFSH Acute PFSH: Medical History (Updated 07/26/24 @ 15:47 by Hong Price MD) Morbid obesity with BMI of 45.0-49.9, adult Hepatitis C Primary osteoarthritis of right knee Obesity HTN (hypertension) Cardiomyopathy ASHD (arteriosclerotic heart disease) Dyslipidemia Diabetes Surgical History History of arthroplasty of left knee Diagnosis: Severe degenerative arthritis left knee with varus deformity and flexion contracture Procedure done: Left total knee arthroplasty with Nestor guidance Date of Surgery: 04/26/2023 Surgeon: Dr. Ludy Key MD Implants: The [employer] total knee system with a size 5 triathlon beaded cruciate retaining femur left, a triathlon titanium tibial component size 5 beaded, a triathlon X3 tibial bearing CS insert size 5 X 11 mm and a beaded triathlon titanium asymmetric patella size 32 x 10 mm S/P CABG (coronary artery bypass graft) S/P PTCA (percutaneous transluminal coronary angioplasty) Family History Brother CAD (coronary artery disease) Mother Cancer Other Diabetes Stroke Social History Smoking and tobacco/nicotine status: never used tobacco/nicotine Alcohol intake: former Substance/Drug Use: never Household members: spouse Marital status: service: No Current occupational status: retired Vitals/I&O/Wt Last Vital Signs Temp 97.8 F 07/26/24 11:02 Pulse 80 07/26/24 14:30 Resp 16 07/26/24 14:30 BP 114/53 07/26/24 14:30 Pulse Ox 90 07/26/24 14:30 O2 Del Method Room Air 07/26/24 14:30 Weight last 48 hrs Weight 131.542 kg Physical Exam Narrative: General: No acute distress, AO x3, dehydrated, morbidly obese HEENT: PERRLA, pupils bilaterally equal and reactive Chest: Normal vesicular breath sounds, no added sounds, equal good air entry bilaterally CVS: S1-S2 regular, no murmurs, no tachycardia, no gallops, no rubs Abdomen: Soft, nontender, no organomegaly, bowel sounds present Neuro: No focal deficits, no facial deformity, AO x3, power 5/5 in all limbs Data 07/26/24 11:22 07/26/24 11:22 A&P Assessment and plan (1) Acute kidney injury: Multifactorial. Most likely in setting of dehydration from increased diuretics recently along with home use of NSAID, lisinopril and combination of hydrochlorothiazide/triamterene. Medical reconciliation done for nephrotoxic drugs. Noriega catheter. Strict input output charting. CT abdomen pelvis to rule out obstructive nephropathy. Check urinalysis, urine drug screen, urine lites, urine creatinine. Monitor renal functions daily. Normal saline at 75 cc/h for 1 bag. (2) Hyperkalemia: Most likely in setting of NELLI and home use of lisinopril. Kayexalate one-time along with D10 and 10 units of insulin. Repeat BMP in 6 hours. (3) Unstable angina: Has history of CAD/post CABG, post PCI. Not followed up with cardiology in a while. Check A1c, lipid panel. 325 mg aspirin one-time. Start on baby aspirin 81 mg daily, atorvastatin 20 mg oral daily. Plan for Lexiscan stress test in AM. N.p.o. after midnight. Troponin cycled. Limited echocardiogram. (4) Cardiomyopathy: Past echocardiogram shows an EF of 60% with grade 1 diastolic dysfunction back in November 2023. Echocardiogram as above. (5) HTN (hypertension): Goal blood pressure less than 140/90 mmHg. On multiple antihypertensives at home. For now we will hold off. Restart as per renal functions and goal blood pressure. (6) Dyspnea on exertion: Not sure of etiology. Could be angina equivalent. Could be in setting of morbid obesity. Resolved as per patient since increasing diuretics. Echocardiogram as above. Cardiac workup as above. Oxygen supplementation keeping saturation over 90%. Chest x-ray shows no acute abnormality. Continue to monitor. Hold off on diuretics. Watch for fluid overload. (7) ASHD (arteriosclerotic heart disease): (8) Morbid obesity with BMI of 45.0-49.9, adult: Plan CODE STATUS: Patient's son and daughter will be the DPOA. Full code. Carb consistent cardiac diet Protonix OPD prophylaxis Heparin 5000 Q12 hourly for DVT prophylaxis. PDMP PDMP Reviewed: Last Reviewed 07/26/24 16:00 by Hong Price MD Attestations Medical Necessity Statement*: Admission for more than 2 midnights for management of acute kidney injury with hyperkalemia in a patient with concerns for dyspnea on exertion possibly because of unstable angina, post CABG, morbid obesity Diagnoses Acute kidney injury N17.9 Hyperkalemia E87.5 Unstable angina I20.0 Cardiomyopathy I42.9 HTN (hypertension) I10 Dyspnea on exertion R06.09 ASHD (arteriosclerotic heart disease) I25.10 Morbid obesity with BMI of 45.0-49.9, adult E66.01; Z68.42
--- NOTE | 2024-07-26 16:05 | USCV_ITS ---
Tiago Branch Age: 74 Gender: M : 1950 Exam Date: 07/26/2024 19:26 Ordering Phys: Hong Price MD Technologist: ÓSCAR Exam Location: [facility] [place] Indication: admitted for acute kidney injury, History of HTN, CAD s/p CABG, s/p cardiac stenting. TAMAYO BP: 149 / 73 HR: 88 Rhythm: Sinus Technical Quality: Adequate MEASUREMENTS (Male / Female) Normal Values 2D ECHO LV Diastolic Diameter PLAX 4.8 cm 4.2 - 5.9 / 3.9 - 5.3 cm IVS Diastolic Thickness 1.1 cm 0.6 - 1.0 / 0.6 - 0.9 cm IVS Systolic Thickness 1.7 cm LVPW Diastolic Thickness 1.1 cm 0.6 - 1.0 / 0.6 - 0.9 cm LVPW Systolic Thickness 1.7 cm LVOT Diameter 2.0 cm LV Ejection Fraction 2D Teich 64.7 % LV Ejection Fraction MOD 4C 54.3 % LV Ejection Fraction MOD 2C 57.5 % LV Ejection Fraction 2C AL 58.8 % LA Diameter 4.4 cm Aorta at Sinotubular Diameter 2.5 cm IVC Diameter 1.3 cm M-MODE LA Ao Ratio MM 1.3 AV Cusp Separation MM 1.7 cm DOPPLER AV Peak Velocity 182.0 cm/s LVOT Peak Velocity 110.0 cm/s AV Area Cont Eq vti 2.9 cm squared AV Area Cont Eq pk 2.0 cm squared MV Peak Velocity 92.0 cm/s MV Area PHT 4.6 cm squared Mitral E to A Ratio 0.8 TV Peak E Velocity 72.0 cm/s PV Peak Velocity 112.0 cm/s FINDINGS Left Ventricle Left ventricle is normal in size. LV systolic function is normal with EF of 55-60%. No regional wall motion abnormalities. Grade 1 diastolic dysfunction Right Ventricle Normal in size and function Right Atrium Normal in size Left Atrium Normal in size Mitral Valve Structurally normal mitral valve. Mild mitral regurgitation. Aortic Valve Aortic valve is thickened. No signfiicant stenosis or regurgitation. Tricuspid Valve Insufficient TR jet to calculate RVSP Pulmonic Valve Not well visualized Pericardium Normal Aorta Mildly dilated ascending aorta with diameter of 3.53 cm IVC Appears to be normal CONCLUSIONS LV systolic function is normal with EF of 55-60% Mild mitral regurgitation Mildly dilated ascending aorta with diameter of 3.53cm Samuel Carranza MD (Electronically Signed) Final Date: 28 July 2024 15:11 S
--- NOTE | 2024-07-26 16:05 | ECG_ITS ---
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 Interpretive Statements LEXISCAN SESTAMIBI STRESS TEST Procedure: At the baseline, the blood pressure was 137/71 mmHg with a heart rate of 91 bpm. The electrocardiogram showed normal sinus rhythm, normal axis with normal ST and T's. The Lexiscan was infused over a period of 20 seconds. A total of 0.4 mg of Lexiscan was infused. The stress phase was continued for a total of 5 minutes. Heart rate was at the end of stress phase was 103 bpm and a blood pressure of 150/64 mmHg. The EKG at the peak infusion revealed normal sinus rhythm with no significant ST-T wave changes. Sestamibi was injected 20 seconds after the Lexiscan infusion. Blood pressure at the end of recovery phase was 153/65 mmHg with a heart rate of 107 bpm. Conclusion: 1. Normal EKG response to Lexiscan infusion 2. No Lexiscan induced chest pain or cardiac arrhythmia. 3. Normal blood pressure and heart rate response. 4. Sestamibi/sestamibi perfusion scan pending; see separate report. Electronically Signed On 07-29-2024 12:30:32 TELECOMMUNICATIONS SWITCH TECHNICIAN by Samuel Carranza M.D. [id number]
[2024-07-26] MEDS: sodium chloride 0.9% 1,000 ML 100 ML IV (16:09)
[2024-07-26] MEDS: sodium polystyrene sulfonate 15 gm/60 mL Btl PO (16:10)
[2024-07-26] MEDS: dextrose 10% 250 ML 1000 ML IV (16:10)
[2024-07-26] MEDS: insulin regular-human 100 units/1 mL 10 UNIT IVP (16:11)
--- NOTE | 2024-07-26 16:23 | PC.NURSE ---
PATIENT REFUSING MALLOY CATHETER. PATIENT INSTRUCTED THAT HE VOIDS OR HAS A BM THAT HE NEED TO COLLECT ENTIRE SAMPLE IN URINAL OR URINARY HAT. PATIENT VERBALIZED UNDERSTANDING.
[2024-07-26 17:03] LABS: Troponin(5th) Baseline 19 ng/L (0-15)
[2024-07-26] MEDS: tamsulosin 0.4 mg Capsule PO (18:13)
[2024-07-26] MEDS: heparin 5,000 unit/mL INJ 1 mL 5000 UNIT SUBCUT (18:13)
[2024-07-26] MEDS: aspirin 325 mg Tablet PO (18:13)
[2024-07-26] MEDS: docusate sodium 100 mg Capsule PO (18:13)
[2024-07-26 18:51] LABS: Glucose Point of Care 113 mg/dL (70-110)
[2024-07-26 20:28] LABS: Estmated Average Glucose 134; Hemoglobin A1C 6.3 % (4.0-6.0)
[2024-07-26 20:42] LABS: Troponin 5 2HR 17.04 ng/L (0-15)
[2024-07-26 20:45] LABS: Troponin 5 2HR Delta -1.96 ABS# (0-10)
[2024-07-26 20:55] LABS: Iron 58 ug/dL (59-158); Thyroid Stimulating Hormone 0.38 uIU/mL (0.27-4.20); Vitamin B12 604 pg/mL (232-1245)
[2024-07-26 20:59] LABS: Alcohol Level < 10 mg/dL (0-10)
[2024-07-26] MEDS: HYDROcodone-acetaminophen 10-325 mg Tablet 1 TAB PO (21:00)
[2024-07-26] MEDS: amitriptyline 25 mg Tablet PO (21:00)
[2024-07-26] MEDS: atorvastatin 40 mg Tablet 20 MG PO (21:00)
[2024-07-26 21:03] LABS: Glucose Point of Care 141 mg/dL (70-110)
--- NOTE | 2024-07-26 21:28 | ECG_ITS ---
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: : 1950 Requested By: Hong Price Order Number: [id number] Reading MD: VENUS BRIAN Measurements Intervals [place] Rate: 95 P: 60 FL: 200 QRS: 18 QRSD: 104 T: 60 QT: 332 QTc: 418 Interpretive Statements SINUS RHYTHM POSSIBLE ANTERIOR MYOCARDIAL INFARCTION , PROBABLY OLD [30 ms Q WAVE IN V3/V4, OR R < 0.2 mV IN V4] Compared to ECG 07/26/2024 15:41:43 Myocardial infarct finding now present T-wave abnormality no longer present Electronically Signed On 07-31-2024 23:54:05 OIL FIELD WORKER by VENUS BRIAN [email or web address] [id number]
--- NOTE | 2024-07-26 21:48 | PC.NURSE ---
vela catheter placed per dr orders. 400ml urine return, patient tolerated well
[2024-07-26 23:01] LABS: Troponin 5 6HR 16.74 ng/L (0-15); Troponin 5 6HR Delta -2.26 ng/L (0-12)
[2024-07-27] VITALS (11 sets, daily range): BP systolic 105–175; BP diastolic 51–66; PULSE 72–105; RESP 16–19; TEMP 36.5–37.2; O2SAT 94–97; BMI 45.7
[2024-07-27] MEDS: acetaminophen 325 mg Tablet 650 MG PO ×2 (01:16→12:45)
[2024-07-27 02:45] LABS: Percent Saturation 20.1 % (20-50); Total Iron Binding Capacity 288 mcg/dl; Unsaturated Iron Binding 230 ug/dL (112-347)
[2024-07-27] MEDS: sodium chloride 0.9% 1,000 ML 100 ML IV ×2 (04:10→20:19)
[2024-07-27 05:25] LABS: Basophils % 0.5 %; Eosinophils # 0.2 10^3/uL (0.0-0.8); Eosinophils % 3.5 %; Hematocrit 31.3 % (37-53); Lymphocytes % 33.7 %; Mean Corpuscular HGB Conc 33.2 g/dL (30-55); Mean Corpuscular Hemoglobin 30.1 pg (27-33); Mean Corpuscular Volume 90.5 fl (82-101); Mean Platelet Volume 10.4 fL (7.4-10.4); Monocytes # 0.5 10^3/uL (0.2-0.9); Monocytes % 7.4 %; Neutrophils # 3.31 10^3/uL (1.8-7.7); Neutrophils % 54.7 %; Nucleated Red Blood Cells % 0 %; Platelet Count 121 10^3/cmm (157-399); Red Blood Count 3.46 10^6/uL (3.85-5.65); Red Cell Distribution Width 12.1 % (12.1-15.1); White Blood Count 6.05 10^3/uL (3.29-11.43)
[2024-07-27 05:43] LABS: Alanine Aminotransferase 14 U/L (0-41); Albumin Level 3.6 g/dL (3.5-5.2); Alkaline Phosphatase 74 U/L (40-130); Anion Gap 16.2 (5-19); Aspartate Amino Transferase 17 U/L (0-40); Blood Urea Nitrogen 57 mg/dL (8-23); Calcium 8.8 mg/dL (8.5-10.5); Carbon Dioxide 21 mmol/L (22-29); Chloride 106 mmol/L (98-107); Creatinine Clr Calc Pharmacy 37.2836; Globulin 2.9 g/dL (1.3-4.6); Glucose 91 mg/dL (65-115); Magnesium 1.4 mg/dL (1.7-2.3); Osmolality Calculated 301 mOsm/kg (285-295); Phosphorus 3.5 mg/dL (2.5-4.5); Potassium 5.2 mmol/L (3.5-5.1); Sodium 138 mmol/L (136-145); Total Bilirubin 0.3 mg/dL (0.15-1.2); Total Protein 6.5 g/dL (6.6-8.7)
[2024-07-27 05:48] LABS: Cholesterol 105 mg/dL (0-200); HDL Cholesterol 25 mg/dL (60-100); LDL Cholesterol Calculated 46 mg/dL (50-129); LDL HDL Ratio 1.84 RATIO (0.00-3.22); Triglycerides 169 mg/dL (0-150)
[2024-07-27 05:51] LABS: Procalcitonin 0.05 ng/mL (0-0.5)
[2024-07-27 06:04] LABS: Folate Level 19.3 ng/mL (4.5-32.2)
[2024-07-27] MEDS: heparin 5,000 unit/mL INJ 1 mL 5000 UNIT SUBCUT ×2 (06:22→17:07)
[2024-07-27 06:57] LABS: Glucose Point of Care 101 mg/dL (70-110)
[2024-07-27] MEDS: regadenoson 0.4 Mg/5 ml Syringe IVP (07:11)
[2024-07-27] MEDS: pantoprazole DR 40 mg Tablet PO (08:28)
[2024-07-27] MEDS: aspirin 81 mg EC Tablet PO (08:28)
[2024-07-27] MEDS: tamsulosin 0.4 mg Capsule PO ×2 (08:28→17:07)
[2024-07-27] MEDS: docusate sodium 100 mg Capsule PO (08:28)
[2024-07-27] MEDS: sodium polystyrene sulfonate 15 gm/60 mL Btl PO (08:30)
[2024-07-27 11:36] LABS: Glucose Point of Care 150 mg/dL (70-110)
[2024-07-27] MEDS: insulin lispro 100 unit/1 mL SUBCUT (12:41)
--- NOTE | 2024-07-27 12:41 | P.PN_ITS ---
Subjective 2 Subjective: No acute vents overnight. Patient states he is feeling better. Denies any difficulty in breathing. Seen with multiple family was at bedside. Seen after stress test today. Denies any chest pain. Vitals/I&O/Wt Last Vital Signs Temp 97.7 F 07/27/24 11:57 Pulse 104 H 07/27/24 11:57 Resp 18 07/27/24 11:57 BP 175/66 07/27/24 11:57 Pulse Ox 96 07/27/24 11:57 O2 Del Method Room Air 07/27/24 11:57 07/26/24 07/27/24 07/27/24 22:59 06:59 14:59 Intake Total 1250 / 1250 1000 / 2250 Output Total 460 / 460 850 / 1310 700 / 700 Balance 790 / 790 150 / 940 -700 / -700 Weight last 48 hrs Weight 106.912 kg Weight 132.477 kg Weight 131.542 kg Weight 131.542 kg Physical Exam 2 Narrative: General: No acute distress, AO x3, dehydrated, morbidly obese HEENT: PERRLA, pupils bilaterally equal and reactive Chest: Normal vesicular breath sounds, no added sounds, equal good air entry bilaterally CVS: S1-S2 regular, no murmurs, no tachycardia, no gallops, no rubs Abdomen: Soft, nontender, no organomegaly, bowel sounds present Neuro: No focal deficits, no facial deformity, AO x3, power 5/5 in all limbs Urinary Catheter Management: Noriega: Cath Placed During This Visit: yes Reason for Continuing Indwelling Catheter: Acute Urinary Retention or Obstruction Urinary Catheter Date of Insertion: 07/26/24 Urinary Catheter Time of Insertion: 21:50 Data 07/27/24 04:33 07/27/24 04:33 A&P Assessment and plan (1) Acute kidney injury: Multifactorial. Most likely in setting of dehydration from increased diuretics recently along with home use of NSAID, lisinopril and combination of hydrochlorothiazide/triamterene. Renal functions improving. Creatinine down to 2.2. Medical reconciliation done for nephrotoxic drugs. Strict input output charting. CT abdomen pelvis negative for obstructive nephropathy. Check urinalysis, urine drug screen, urine lites, urine creatinine. Labs still not sent. Monitor renal functions daily. Normal saline at 75 cc/h for 1 bag. (2) Hyperkalemia: Most likely in setting of NELLI and home use of lisinopril. Repeat Kayexalate one-time along with D10 and 10 units of insulin. Repeat BMP in 6 hours. (3) Unstable angina: Has history of CAD/post CABG, post PCI. Not followed up with cardiology in a while. Appreciate A1c, lipid panel. Continue with aspirin 81 mg daily, atorvastatin 20 mg oral daily. Follow-up stress test results. Troponin cycled negative. Echocardiogram results pending. (4) Cardiomyopathy: Past echocardiogram shows an EF of 60% with grade 1 diastolic dysfunction back in November 2023. Echocardiogram as above. (5) HTN (hypertension): Goal blood pressure less than 140/90 mmHg. Blood pressures improving. Start on amlodipine 10 mg oral daily, metoprolol 25 mg twice daily. Uptitrate as for goal blood pressures. (6) Dyspnea on exertion: Not sure of etiology. Could be angina equivalent. High concerns for undiagnosed sleep apnea setting of morbid obesity. Patient will benefit for sleep study as an outpatient. Follow-up stress test results, echocardiogram. Oxygen supplementation keeping saturation over 90%. Chest x-ray shows no acute abnormality. Continue to monitor. Hold off on diuretics. Watch for fluid overload. (7) ASHD (arteriosclerotic heart disease): (8) Morbid obesity with BMI of 45.0-49.9, adult: Plan CODE STATUS: Patient's son and daughter will be the DPOA. Full code. Carb consistent cardiac diet Protonix OPD prophylaxis Heparin 5000 Q12 hourly for DVT prophylaxis. PDMP PDMP Reviewed: Last Reviewed 07/26/24 16:00 by Hong Price MD Attestations 2 Medical Necessity Statement*: Requires further hospitalization for management of acute kidney injury in setting of dehydration from overdiuresis, shortness of breath with concerns for unstable angina while stress test results are awaited, undiagnosed sleep apnea in a patient with morbid obesity Diagnoses Acute kidney injury N17.9 Hyperkalemia E87.5 Unstable angina I20.0 Cardiomyopathy I42.9 HTN (hypertension) I10 Dyspnea on exertion R06.09 ASHD (arteriosclerotic heart disease) I25.10 Morbid obesity with BMI of 45.0-49.9, adult E66.01; Z68.42
[2024-07-27] MEDS: amlodipine 10 mg Tablet PO (14:45)
[2024-07-27] MEDS: dextrose 10% 250 ML 1000 ML IV (14:45)
[2024-07-27] MEDS: insulin regular-human 100 units/1 mL 10 UNIT IVP (14:45)
[2024-07-27 15:11] LABS: Bilirubin Urine Negative (Negative); Blood Urine 3+ (Negative); Glucose Urine UA Negative (Normal); Ketones Urine Negative (Negative); Leukocyte Esterase Urine 1+ (Negative); Nitrate Urine Negative (Negative); Protein Urine 1+ (Negative); Specific Gravity, Urine 1.016 (1.005-1.030); Urine Appearance Clear (CLEAR); Urine Color Yellow (Yellow); pH Urine 5.5 (5-7)
[2024-07-27 15:17] LABS: Amphetamines Screen Urine Negative (Negative); Barbiturates Screen Urine Negative (Negative); Benzodiazepines Screen Urine Positive (Negative); Cocaine Screen Urine Negative (Negative); Opiate Screen Urine Positive (Negative); PCP Screen Urine Negative (Negative); THC Screen Urine Negative (Negative)
[2024-07-27 15:23] LABS: Urine Creatinine 129 mg/dL (39-259)
[2024-07-27 15:40] LABS: Add Urine Culture? Yes; Add Urine Microscopic? YES; Bacteria Urine TRACE /hpf; Hyaline Casts Urine 0-4 /lpf; Mucus Urine 1+ /hpf; RBC Urine 25-40 /hpf (0-2); Squamous Epithelial Cell Urine 0-4 /hpf (0-5); UA Manual Slide Review YES; UA Slide Review UA Slide Review Perf; WBC Urine 0-4 /hpf (0-5)
--- NOTE | 2024-07-27 16:05 | NMCV_ITS ---
NM dorcas perf SPECT r/s* [id number] Tiago Branch Age: 74 Gender: M : 1950 Exam Date: 07/27/2024 06:34 Ordering Phys: Hong Price MD Technologist: KAREN Barrera Exam Location: [facility] Indications: cp STRESS TEST Please see separate stress test report in [facility] for full findings IMAGE PROTOCOL Rest/Stress 1 Lexiscan Day Radiopharmaceutical Dose (mCi) Administration Site Administered by Rest: Tc-99m 10.8 IV Ira Mohr, VP MEDICAL Sestamibi Stress:Tc-99m 33 IV Ira Mcnallygle, VP MEDICAL Sestamibi Rest: 27-Jul-2024 60 Discovery 630 Stress: 27-Jul-2024 30 Discovery 630 0.4mg Lexiscan. Supine position only as patient was unable to lay prone. SPECT RESULTS Technical Quality: Good Raw Data Analysis: Normal Image Corrections: No attenuation or motion correction applied Summed Stress Score: 0 Summed Rest Score: 1 Summed Difference Score: 0 PERFUSION FINDINGS SPECT images demonstrate homogeneous tracer distribution throughout the myocardium. FUNCTIONAL RESULTS (calculated via Gated SPECT) Stress Image LV EF (%): 79 Stress EDV (mL):86 TID: 0.67 Stress ESV (mL):18 FUNCTIONAL FINDINGS: There is normal left ventricular systolic function. IMPRESSIONS 1. Normal myocardial perfusion imaging with no evidence of ischemia 2. LV systolic function is normal Samuel Carranza MD (Electronically Signed) Final Date: 28 July 2024 10:20 S
[2024-07-27 16:37] LABS: Glucose Point of Care 133 mg/dL (70-110)
[2024-07-27 17:40] LABS: Eosinophil Urine No Eosinophils Seen
[2024-07-27] MEDS: metoprolol tartrate 25 mg Tablet PO (20:20)
[2024-07-27] MEDS: amitriptyline 25 mg Tablet PO (20:20)
[2024-07-27] MEDS: atorvastatin 40 mg Tablet 20 MG PO (20:20)
[2024-07-27 20:41] LABS: Glucose Point of Care 104 mg/dL (70-110)
[2024-07-28] MEDS: acetaminophen 325 mg Tablet 650 MG PO (01:20)
[2024-07-28 04:00] VITALS: BP 125/65; PULSE 86; RESP 16; TEMP 36.9; O2SAT 96
[2024-07-28] MEDS: heparin 5,000 unit/mL INJ 1 mL 5000 UNIT SUBCUT (04:48)
[2024-07-28 04:51] LABS: Basophils % 0.6 %; Hematocrit 30.1 % (37-53); Lymphocytes # 1.7 10^3/uL (0.8-4.8); Lymphocytes % 25.4 %; Mean Corpuscular HGB Conc 33.2 g/dL (30-55); Mean Corpuscular Hemoglobin 30.6 pg (27-33); Mean Platelet Volume 10.5 fL (7.4-10.4); Monocytes # 0.5 10^3/uL (0.2-0.9); Neutrophils # 4.52 10^3/uL (1.8-7.7); Neutrophils % 66.9 %; Nucleated Red Blood Cells % 0 %; Platelet Count 116 10^3/cmm (157-399); Red Blood Count 3.27 10^6/uL (3.85-5.65); Red Cell Distribution Width 12.2 % (12.1-15.1); White Blood Count 6.76 10^3/uL (3.29-11.43)
[2024-07-28 05:18] VITALS: PULSE 89
[2024-07-28 05:26] LABS: Alanine Aminotransferase 12 U/L (0-41); Albumin Level 3.8 g/dL (3.5-5.2); Alkaline Phosphatase 72 U/L (40-130); Anion Gap 15.4 (5-19); Aspartate Amino Transferase 17 U/L (0-40); Blood Urea Nitrogen 27 mg/dL (8-23); Carbon Dioxide 20 mmol/L (22-29); Chloride 109 mmol/L (98-107); Creatinine Clr Calc Pharmacy 56.3588; Globulin 2.9 g/dL (1.3-4.6); Glucose 95 mg/dL (65-115); Magnesium 1.3 mg/dL (1.7-2.3); Osmolality Calculated 295 mOsm/kg (285-295); Potassium 4.4 mmol/L (3.5-5.1); Sodium 140 mmol/L (136-145); Total Bilirubin 0.5 mg/dL (0.15-1.2); Total Protein 6.7 g/dL (6.6-8.7)
[2024-07-28 06:53] LABS: Glucose Point of Care 101 mg/dL (70-110)
[2024-07-28 07:42] VITALS: BP 145/82; PULSE 79; RESP 16; TEMP 36.9; O2SAT 98
[2024-07-28] MEDS: sodium chloride 0.9% 1,000 ML 100 ML IV (08:51)
[2024-07-28] MEDS: amlodipine 10 mg Tablet PO (08:52)
[2024-07-28] MEDS: tamsulosin 0.4 mg Capsule PO (08:52)
[2024-07-28] MEDS: metoprolol tartrate 25 mg Tablet PO (08:52)
[2024-07-28] MEDS: docusate sodium 100 mg Capsule PO (08:52)
[2024-07-28] MEDS: aspirin 81 mg EC Tablet PO (08:52)
[2024-07-28] MEDS: pantoprazole DR 40 mg Tablet PO (08:52)
[2024-07-28 10:36] LABS: Glucose Point of Care 124 mg/dL (70-110)
[2024-07-28 11:29] VITALS: BP 135/88; PULSE 80; RESP 16; TEMP 36.5; O2SAT 98
--- NOTE | 2024-07-28 12:35 | PM.DCS ---
Discharge Providers Date of Admission: 07/26/24 17:06 Date of Discharge: July 28, 2024 Attending Provider at Admission: Hong Price MD Attending Provider at Discharge: Hong Price MD Primary Care Provider: Dom Fuentes DO Diagnoses at Discharge Discharge Diagnosis (1) Acute kidney injury: Status: Acute (2) Hyperkalemia: Status: Acute (3) Unstable angina: Status: Acute (4) Cardiomyopathy: Status: Acute (5) HTN (hypertension): Status: Acute (6) Dyspnea on exertion: Status: Acute (7) ASHD (arteriosclerotic heart disease): Status: Acute (8) Morbid obesity with BMI of 45.0-49.9, adult: Status: Acute Reason for Visit Reason for Visit: dr brown kidney failure Hospital Course Hospital Course Tiago Branch is a 74 year old male with past medical history of hypertension, morbid obesity, CAD post CABG, post PCI presents to the ER today as per directions from his PCPs office because of acute kidney injury on blood work. As per the patient he has been having worsening difficulty in breathing on exertion for the last 3 to 4 weeks for which his diuretics were increased by the PCP. On routine blood work today he was found to have NELLI hence he was direct to the ER. Patient states his breathing is better since increasing the medication but his urine output has been decreasing over the last 1 week. He is also complaining of chest pressure on and off for last 3 to 4 weeks. Does not follow-up with inside sales coordinator as an outpatient. He reports weight gain of around 15 pounds in the last 3 weeks. States appetite is appropriate. Patient was admitted to the hospital further evaluation and management for NELLI in setting of dehydration from overdiuresis. He was started on IV fluids. His kidney function is gradually improved down to 1.3. Patient did not have any episode of fluid overload during hospitalization. It is believed his etiology of difficulty in breathing could be in setting of morbid obesity and obstructive sleep apnea. Patient would benefit with sleep study as an outpatient. Concerns for unstable angina or ACS were ruled out with a negative cardiac stress test on 07/27. During hospitalization his antihypertensives were adjusted. For now he is to hold off on lisinopril for next 1 week. He is not to take celecoxib and metformin anymore. Instead has been transition to oral Farxiga daily. Lasix has been changed to as needed for weight gain of 3 pounds. Lifestyle modifications were discussed in detail with the patient and multiple family members at bedside and all the questions were answered. Physical Exam Narrative: General: No acute distress, AO x3, dehydrated, morbidly obese HEENT: PERRLA, pupils bilaterally equal and reactive Chest: Normal vesicular breath sounds, no added sounds, equal good air entry bilaterally CVS: S1-S2 regular, no murmurs, no tachycardia, no gallops, no rubs Abdomen: Soft, nontender, no organomegaly, bowel sounds present Neuro: No focal deficits, no facial deformity, AO x3, power 5/5 in all limbs Urinary Catheter Management: Noriega: Cath Placed During This Visit: yes Reason for Continuing Indwelling Catheter: Other Urinary Catheter Date of Insertion: 07/26/24 Urinary Catheter Time of Insertion: 21:50 Discharge Data Studies Completed and Pending Completed Studies During Hospitalization Category Date Time Status CT abdomen pelvis wo con [id number] Routine Cat Scan 07/26/24 15:25 Completed CXRP [XR chest 1V portable [id number]] Stat Exams 07/26/24 11:03 Completed Sestamibi Stress Test Request Routine Exams 07/26/24 16:05 Draft NM dorcas perf SPECT r/s* [id number] Routine Nuc Med 07/27/24 16:05 Completed Pending at discharge Category Date Time Status Complete Blood Count w/Auto AM LABS Lab 07/29/24 04:00 Ordered Comprehensive Metabolic Panel AM LABS Lab 07/29/24 04:00 Ordered Magnesium AM LABS Lab 07/29/24 04:00 Ordered Phosphorus AM LABS Lab 07/29/24 04:00 Ordered Urine Culture Stat Lab 07/26/24 15:00 Results CV. echo limited [id number] Routine Ultrasound 07/26/24 16:05 Taken Radiology Impressions Chest X-Ray 07/26/24 11:03 IMPRESSION: 1. No acute cardiopulmonary finding. Lexiscan stress test: PERFUSION FINDINGS SPECT images demonstrate homogeneous tracer distribution throughout the myocardium. FUNCTIONAL RESULTS (calculated via Gated SPECT) Stress Image LV EF (%): 79 Stress EDV (mL):86 TID: 0.67 Stress ESV (mL):18 FUNCTIONAL FINDINGS: There is normal left ventricular systolic function. IMPRESSIONS 1. Normal myocardial perfusion imaging with no evidence of ischemia 2. LV systolic function is normal Samuel Carranza MD (Electronically Signed) Final Date: 28 July 2024 10:20 Abdomen/Pelvis CT 07/26/24 15:25 IMPRESSION: 1. No acute abnormality in the abdomen or pelvis. 2. No hydroureteronephrosis. No calcified urolithiasis. 3. Cholelithiasis. 4. Scattered diverticula in the colon. No evidence for diverticulitis. 5. Incidental/nonacute findings are listed in the report. Laboratory Results WBC 6.76 10^3/uL (3.29-11.43) 07/28/24 03:40 RBC 3.27 10^6/uL (3.85-5.65) L 07/28/24 03:40 Hgb 10.00 g/dL (11.27-16.99) L 07/28/24 03:40 Hct 30.1 % (37-53) L 07/28/24 03:40 MCV 92.0 fl (82-101) 07/28/24 03:40 MCH 30.6 pg (27-33) 07/28/24 03:40 MCHC 33.2 g/dL (30-55) 07/28/24 03:40 RDW 12.2 % (12.1-15.1) 07/28/24 03:40 Plt Count 116 10^3/cmm (157-399) L 07/28/24 03:40 MPV 10.5 fL (7.4-10.4) H 07/28/24 03:40 Neut % (Auto) 66.9 % 07/28/24 03:40 Lymph % (Auto) 25.4 % 07/28/24 03:40 Wheeler % (Auto) 7.0 % 07/28/24 03:40 Eos % (Auto) 0.0 % 07/28/24 03:40 Baso % (Auto) 0.6 % 07/28/24 03:40 Neut # (Auto) 4.52 10^3/uL (1.8-7.7) 07/28/24 03:40 Lymph # (Auto) 1.7 10^3/uL (0.8-4.8) 07/28/24 03:40 Wheeler # (Auto) 0.5 10^3/uL (0.2-0.9) 07/28/24 03:40 Eos # (Auto) 0.0 10^3/uL (0.0-0.8) 07/28/24 03:40 Baso # (Auto) 0.0 10^3/uL (0.0-0.1) 07/28/24 03:40 Nucleated RBC % (auto) 0 % 07/28/24 03:40 Nucleated RBCs # 0.0 /100WBC 07/28/24 03:40 Sodium 140 mmol/L (136-145) 07/28/24 03:40 Potassium 4.4 mmol/L (3.5-5.1) 07/28/24 03:40 Chloride 109 mmol/L (98-107) H 07/28/24 03:40 Carbon Dioxide 20 mmol/L (22-29) L 07/28/24 03:40 Anion Gap 15.4 (5-19) 07/28/24 03:40 BUN 27 mg/dL (8-23) H 07/28/24 03:40 Creatinine 1.3 mg/dL (0.7-1.2) H 07/28/24 03:40 GFR Calculation Not Reportable 07/28/24 03:40 Glucose 95 mg/dL (65-115) 07/28/24 03:40 POC Glucose 124 mg/dL (70-110) H 07/28/24 10:31 Estimat Average Glucose 134 07/26/24 11:22 Hemoglobin A1c 6.3 % (4.0-6.0) H 07/26/24 11:22 Calculated Osmolality 295 mOsm/kg (285-295) 07/28/24 03:40 Calcium 9.0 mg/dL (8.5-10.5) 07/28/24 03:40 Phosphorus 3.0 mg/dL (2.5-4.5) 07/28/24 03:40 Magnesium 1.3 mg/dL (1.7-2.3) L 07/28/24 03:40 Iron 58 ug/dL (59-158) L 07/26/24 20:02 TIBC 288 mcg/dl 07/26/24 20:02 % Saturation 20.1 % (20-50) 07/26/24 20:02 Unsat Iron Binding 230 ug/dL (112-347) 07/26/24 20:02 Total Bilirubin 0.5 mg/dL (0.15-1.2) 07/28/24 03:40 AST 17 U/L (0-40) 07/28/24 03:40 ALT 12 U/L (0-41) 07/28/24 03:40 Alkaline Phosphatase 72 U/L (40-130) 07/28/24 03:40 Troponin T Baseline 19 ng/L (0-15) H 07/26/24 16:19 Troponin T 120 Minute 17.04 ng/L (0-15) H 07/26/24 20:02 Delta Troponin T -1.96 ABS# (0-10) L 07/26/24 20:02 Troponin T Hi Sens 6Hr 16.74 ng/L (0-15) H 07/26/24 22:25 Troponin T Hi Sens 6Hr Delta -2.26 ng/L (0-12) L 07/26/24 22: NT-Pro-B Natriuret Pep 140 pg/mL (0-450) 07/26/24 11:22 Total Protein 6.7 g/dL (6.6-8.7) 07/28/24 03:40 Albumin 3.8 g/dL (3.5-5.2) 07/28/24 03:40 Globulin 2.9 g/dL (1.3-4.6) 07/28/24 03:40 Triglycerides 169 mg/dL (0-150) H 07/27/24 04:33 Cholesterol 105 mg/dL (0-200) 07/27/24 04:33 LDL Cholesterol, Calc 46 mg/dL (50-129) L 07/27/24 04:33 HDL Cholesterol 25 mg/dL (60-100) L 07/27/24 04:33 LDL/HDL Ratio 1.84 RATIO (0.00-3.22) 07/27/24 04:33 Cholesterol/HDL Ratio 4.20 mg/dL (1.0-5.00) 07/27/24 04:33 Vitamin B12 604 pg/mL (232-1245) 07/26/24 20:02 Folate 19.3 ng/mL (4.5-32.2) 07/27/24 04:33 Procalcitonin 0.05 ng/mL (0-0.5) 07/27/24 04:33 TSH 0.38 uIU/mL (0.27-4.20) 07/26/24 20:02 Urine Color Yellow (Yellow) 07/26/24 15:00 Urine Appearance Clear (CLEAR) 07/26/24 15:00 Urine pH 5.5 (5-7) 07/26/24 15:00 Ur Specific [place] 1.016 (1.005-1.030) 07/26/24 15:00 Urine Protein 1+ (Negative) A 07/26/24 15:00 Urine Glucose (UA) Negative (Normal) 07/26/24 15:00 Urine Ketones Negative (Negative) 07/26/24 15:00 Urine Blood 3+ (Negative) A 07/26/24 15:00 Urine Nitrate Negative (Negative) 07/26/24 15:00 Urine Bilirubin Negative (Negative) 07/26/24 15:00 Urine Urobilinogen 1.0 mg/dL (Negative) 07/26/24 15:00 Ur Leukocyte Esterase 1+ (Negative) A 07/26/24 15:00 Urine RBC 25-40 /hpf (0-2) H 07/26/24 15:00 Urine WBC 0-4 /hpf (0-5) H 07/26/24 15:00 Ur Eosinophil Smear Not Reportable 07/26/24 15:00 Ur Squamous Epith Cells 0-4 /hpf (0-5) H 07/26/24 15:00 Amorphous Sediment Not Reportable 07/26/24 15:00 Urine Bacteria Trace /hpf (NONE) 07/26/24 15:00 Hyaline Casts 0-4 /lpf H 07/26/24 15:00 Urine Mucus 1+ /hpf 07/26/24 15:00 Urine Eosinophils No eosinophils seen 07/26/24 15:00 Urine Creatinine 129 mg/dL (39-259) 07/26/24 15:00 Urine Opiates Screen Positive ng/mL (Negative) H 07/26/24 15:00 Ur Barbiturates Screen Negative ng/mL (Negative) 07/26/24 15:00 Ur Phencyclidine Scrn Negative ng/mL (Negative) 07/26/24 15:00 Ur Amphetamines Screen Negative ng/mL (Negative) 07/26/24 15:00 U Benzodiazepines Scrn Positive ng/mL (Negative) H 07/26/24 15:00 Urine Cocaine Screen Negative ng/mL (Negative) 07/26/24 15:00 U Marijuana (THC) Screen Negative ng/mL (Negative) 07/26/24 15:00 Ethyl Alcohol < 10 mg/dL (0-10) 07/26/24 20:02 Vitals Last Vital Signs Temp 97.7 F 07/28/24 11:29 Pulse 80 07/28/24 11:29 Resp 16 07/28/24 11:29 BP 135/88 07/28/24 11:29 Pulse Ox 98 07/28/24 11:29 O2 Del Method Room Air 07/28/24 11:29 Discharge Plan Discharge Patient Disposition: Home Condition: Stable Prescriptions: New metoprolol tartrate 25 mg Tablet 25 mg PO BID@0900,2100 Qty: 60 0RF dapagliflozin propanediol [Farxiga] 10 mg tablet 10 mg PO DAILY Qty: 30 0RF aspirin 81 mg Tablet,Delayed Release (Dr/Ec) 81 mg PO DAILY Qty: 30 0RF amlodipine 10 mg Tablet 10 mg PO DAILY Qty: 30 0RF atorvastatin 40 mg Tablet 20 mg PO BEDTIME Qty: 30 0RF Continued cetirizine 10 mg tablet 10 mg PO DAILY PRN (Reason: Allergy Symptoms) hydrocodone-acetaminophen 10-325 mg tablet 1 tab PO Q6H PRN (Reason: Pain) nitroglycerin [Nitrostat] 0.4 mg tablet, sublingual 0.4 mg SUBLINGUAL Q5M PRN (Reason: Chest Pain) Rx Instructions: do not exceed 3 doses per episode lorazepam 1 mg tablet 1 mg PO DAILY PRN (Reason: Anxiety) amitriptyline 25 mg tablet 25 mg PO .qhs pantoprazole 40 mg tablet,delayed release (DR/EC) 40 mg PO DAILY albuterol sulfate 90 mcg/actuation HFA aerosol inhaler 2 puff INHALATION Q6H tamsulosin 0.4 mg capsule 0.4 mg PO BID Changed furosemide 40 mg tablet 40 mg PO BID PRN (Reason: weight gain of 3 lbs) Qty: 10 0RF Held lisinopril 40 mg tablet 40 mg PO DAILY Hold Instructions: Resume on 08/04/24. Discontinued celecoxib 200 mg Capsule 200 mg PO 1XD 30 Days Qty: 30 1RF triamterene-hydrochlorothiazid 37.5-25 mg tablet 1 tab PO DAILY PRN (Reason: Edema) metformin 500 mg tablet 500 mg PO BID Discharge Orders: Discharge Order (Routine); Ordered 07/28/24 Ordered By: Hong Price Referrals: Dom Fuentes, DO [Primary Care Provider] - 2 weeks (We have notified your physician's clinic of the need for a follow-up appointment to be scheduled. If you have not heard from them within the next 2 business days, please call them directly. ) Discharge Diet: Cardiac and Diabetic Discharge Activity: Resume usual activity and Increase activity as tolerated Patient Instructions: Metoprolol (By mouth), Aspirin (By mouth), Amlodipine (By mouth), Atorvastatin (By mouth), Dapagliflozin (By mouth) (Farxiga), Angina (DC), Acute Kidney Injury (DC), Hyperkalemia (DC), Opioid Safety Activity Restrictions/Additional Instructions: Restrict fluid intake to less than 1500 cc, salt intake to less than 2 g daily. Advised to check his weight daily at home. Is advised that weight today would be the dry weight and if body weight increases by around 5 pounds, patient is to take an extra dose of Lasix daily till body weight comes down to weight today. If not able to come down to dry body weight in 1 week, then is to call cardiology office for further recommendations. Patient was counseled in detail to take medications regularly as prescribed. Do not take celecoxib, metformin, combination of triamterene hydrochlorothiazide anymore. Hold lisinopril for 1 week. Instead take amlodipine 10 mg oral daily. Take metoprolol 25 mg twice daily. Check your blood pressure daily at home and maintain a blood pressure diary. Goal blood pressure less than 140/90 mmHg. Follow-up with a primary care provider within next 2 weeks with a blood pressure diary for further adjustment of medications. For diabetes instead of metformin take Farxiga going forward. Please try to lose up to 10 to 15 pounds of weight. You will benefit with sleep study as an outpatient. Discharge Attestations Time Spent in Discharge Care*: greater than 30 min Specific Discharge Activities: educating patient, educating and/or supporting family/caregiver, discussing with pcp/other providers, discussing with case management social worker/social workers/dc planners, documenting/other paperwork and evaluating patient/reviewing data Status at Discharge: Cognitive status at discharge: cognitively intact, Behavioral status at discharge: cooperative, Functional status at discharge: independent ambulation, Overall status at discharge: patient is back to baseline Quality Metrics Clinical Quality Measures [ No reported AMI, CVA or VTE this stay] Coding Level of Care Code 32188 Total time (in minutes) for Discharge: 60 Diagnoses Acute kidney injury N17.9 Hyperkalemia E87.5 Unstable angina I20.0 Cardiomyopathy I42.9 HTN (hypertension) I10 Dyspnea on exertion R06.09 ASHD (arteriosclerotic heart disease) I25.10 Morbid obesity with BMI of 45.0-49.9, adult E66.01; Z68.42
[2024-07-28 15:23] VITALS: BP 135/88; PULSE 80; RESP 16; TEMP 36.5; O2SAT 98
== END 2024-07-28 14:50 | disposition home health service (06) | DRG 683 ==
LOC: ER 14:27 → ER IP 14:49 → MEDSURG 17:05
PROVIDERS: Admitting Provider Student in an Organized Health Care Education/Training Program; Emergency Provider Emergency Medicine; PCP Electrodiagnostic Medicine; Visit Provider Student in an Organized Health Care Education/Training Program
DX: N17.9 Acute kidney failure, unspecified (principal); I25.110 Atherosclerotic heart disease of native coronary artery with unstable angina pectoris; I42.9 Cardiomyopathy, unspecified; I50.32 Chronic diastolic (congestive) heart failure; Z95.1 Presence of aortocoronary bypass graft; E66.01 Morbid (severe) obesity due to excess calories; Z68.36 Body mass index [BMI] 36.0-36.9, adult; E86.0 Dehydration; Z79.891 Long term (current) use of opiate analgesic; Z86.19 Personal history of other infectious and parasitic diseases; I11.0 Hypertensive heart disease with heart failure; E11.9 Type 2 diabetes mellitus without complications; Z95.5 Presence of coronary angioplasty implant and graft
CPT/HCPCS: 36415; 36416; 51702; 71045; 74176; 78452; 80053; 80061; 80306; 80307; 81001; 82570; 82607; 82746; 82962; 83036; 83540; 83550; 83735; 83880; 84100; 84145; 84443; 84484; 85025; 85999; 87086; 93005; 93017; 93308; 94664; 96372; 96375; A9500; G0378; J1644; J1815; J2785; J7030; J7799

== ENCOUNTER → 2024-07-30 13:32 | Outpatient (BNVA) | payer MEDICARE, OTHER, MEDICAID, SELFPAY | PROVIDERS: PCP Electrodiagnostic Medicine; Visit Provider Internal Medicine | DX: R06.02 Shortness of breath (principal); I10 Essential (primary) hypertension; I42.9 Cardiomyopathy, unspecified; Z95.1 Presence of aortocoronary bypass graft; I25.10 Atherosclerotic heart disease of native coronary artery without angina pectoris; E78.5 Hyperlipidemia, unspecified; Z98.61 Coronary angioplasty status; E11.9 Type 2 diabetes mellitus without complications; Z87.891 Personal history of nicotine dependence | CPT/HCPCS: 99214 ==

== ENCOUNTER 2024-10-03 12:31 | Outpatient (RCR) | payer MEDICARE, MEDICAID, SELFPAY | END 2024-10-03 23:59 | disposition home or self-care (01) | LOC: SPT 12:31 | PROVIDERS: Visit Provider Electrodiagnostic Medicine | DX: R26.2 Difficulty in walking, not elsewhere classified (principal) | CPT/HCPCS: 97161 ==

== ENCOUNTER 2024-10-04 06:00 | Outpatient (RCR) | payer MEDICARE, MEDICAID, SELFPAY | END 2024-10-25 13:05 | disposition home or self-care (01) | LOC: SPT 06:00 | PROVIDERS: Visit Provider Electrodiagnostic Medicine | DX: R26.2 Difficulty in walking, not elsewhere classified (principal); M54.59 Other low back pain | CPT/HCPCS: 97110 ==

== ENCOUNTER 2024-10-31 10:09 | Outpatient (CLI) | payer MEDICARE, MEDICAID, SELFPAY ==
--- NOTE | 2024-10-31 10:12 | FL_ITS ---
WS: [id number] Modified barium swallow, 10/31/2024 Clinical Data: Other dysphagia Comparison: None. Fluoroscopy time: 3min [id number] # of spot films: 0 Findings: The patient exhibited difficulty with mastication. Multiple swallows were necessary to propel food through the esophagus and there was significant residue. No aspiration or penetration occurred. The barium tablet traveled normally from the oral cavity through the hypopharynx into the esophagus and finally the stomach. FL/FL barium swallow modifd [id number] Impression: 1. Difficulty with mastication. 2. Significant residue which would clear with multiple swallows. 3. No aspiration or penetration.
== END 2024-10-31 10:10 | disposition home or self-care (01) ==
PROVIDERS: PCP Electrodiagnostic Medicine; Visit Provider Electrodiagnostic Medicine
DX: R13.10 Dysphagia, unspecified (principal); R93.89 Abnormal findings on diagnostic imaging of other specified body structures
CPT/HCPCS: 74230; 92611

== ENCOUNTER 2025-05-23 08:35 | Outpatient (CLI) | payer OTHER, MEDICAID, SELFPAY ==
--- NOTE | 2025-05-23 08:42 | FL_ITS ---
WS: [id number] Barium swallow and esophagram, 05/23/2025 Clinical Data: DYSPHAGIA Comparison: None. Fluoroscopy time: 1min [id number] # of spot films: 44 Findings: The patient swallowed the thick and thin barium, and it flowed through the hypopharynx without hesitation. No stricture, mass, polyp or erosion was seen. There was no aspiration or penetration The barium entered the esophagus and there was normal motility with occasional tertiary contractions. No hiatal hernia, reflux, stricture, polyp, mass, erosion or ulcer was noted. The barium passed normally through the gastroesophageal junction into the stomach. FL/FL barium swallow [id number] Impression: Normal esophagram with occasional tertiary contractions..
== END 2025-05-23 08:36 | disposition home or self-care (01) ==
LOC: RAD 08:38
PROVIDERS: PCP Electrodiagnostic Medicine; Visit Provider Otolaryngology
DX: R13.19 Other dysphagia (principal)
CPT/HCPCS: 74220

== ENCOUNTER 2025-05-27 12:51 | Outpatient (CLI) | payer OTHER, MEDICAID, SELFPAY ==
--- NOTE | 2025-05-27 13:03 | CTR_ITS ---
PROCEDURE INFORMATION: Exam: CT Neck With Contrast Exam date and time: 05/27/2025 1:29 PM Age: 74 years old Clinical indication: Dysphagia / difficulty swallowing; Dysphagia, asses for diverticulum, hoarseness x 6 months; Additional info: Dysphagia, assess for diverticulum TECHNIQUE: Imaging protocol: Computed tomography of the neck with contrast. Radiation optimization: All CT scans at this facility use at least one of these dose optimization techniques: automated exposure control; mA and/or kV adjustment per patient size (includes targeted exams where dose is matched to clinical indication); or iterative reconstruction. Contrast material: OMNI 350; Contrast volume: 100 ml; Contrast route: INTRAVENOUS (IV); COMPARISON: RF FL barium swallow [id number] 05/23/2025 9:00 AM RADIATION DOSE METRICS: Total DLP (mGy-cm): 296.22 FINDINGS: Salivary glands: Normal. Glands are normal in size. Pharynx: Unremarkable. No significant tonsillar enlargement. Larynx: Unremarkable. Epiglottis is normal. Thyroid: There is a 4 mm hypodense nodule in the right thyroid lobe on series 3 and image 79. There is a 2nd nodule in the right thyroid lobe measuring 8 mm. No enlarged or calcified nodules. Trachea: Visualized trachea is unremarkable. Lungs: Unremarkable as visualized. Lymph nodes: Unremarkable. No lymphadenopathy. Bones/joints: Unremarkable. No acute fracture. Sternotomy wires are seen. Soft tissues: Unremarkable. No significant soft tissue swelling. CT/CT neck w con* [id number] IMPRESSION: 1. No evidence for diverticulum of the larynx or pharynx. 2. Multiple right thyroid nodules. Ultrasound of the thyroid gland is recommended for further characterization if not already performed.
[2025-05-27] MEDS: iohexol 350 mg/mL 500 mL Btl (per mL) IV (13:35)
[2025-05-27 13:39] LABS: Blood Urea Nitrogen 18 mg/dL (8-23)
== END 2025-05-27 12:52 | disposition home or self-care (01) ==
LOC: RAD 12:52
PROVIDERS: PCP Electrodiagnostic Medicine; Visit Provider Otolaryngology
DX: R13.19 Other dysphagia (principal); E04.2 Nontoxic multinodular goiter
CPT/HCPCS: 70491; 82565; 84520